=== PATIENT | female | born 1980 ===

== ENCOUNTER → 2022-12-08 13:44 | Outpatient (BNVA) | payer OTHER, SELFPAY | PROVIDERS: PCP Internal Medicine; Visit Provider Nurse Practitioner Family | DX: R39.14 Feeling of incomplete bladder emptying (principal); R39.16 Straining to void | CPT/HCPCS: 51798; 99202 ==

== ENCOUNTER 2023-03-03 10:18 | Outpatient (REF) | payer OTHER, SELFPAY ==
--- NOTE | ~2023-03-03 | US_ITS ---
EXAMINATION: US RETROPERITONEAL COMPLETE (RENAL) CLINICAL INFORMATION: Feeling of incomplete bladder emptying. COMPARISON: None available. TECHNIQUE: Real-time imaging of the kidneys and bladder. FINDINGS: RIGHT KIDNEY: 9.3 x 4.9 x 4.1 cm (SAG x AP x TRV). The kidney is normal in size, contour, and echogenicity. Renal cortical thickness is normal. No calculi or focal parenchymal lesions. No hydronephrosis. LEFT KIDNEY: 9.3 x 5.0 x 5.5 cm (SAG x AP x TRV). The kidney is normal in size, contour, and echogenicity. Renal cortical thickness is normal. No calculi or focal parenchymal lesions. No hydronephrosis. BLADDER: Well distended and normal. Bilateral ureteral jets are not demonstrated. Prevoid bladder volume is 181 mL. Postvoid bladder volume is 2 mL. INCIDENTAL FINDING: Uterine device is noted, properly situated within the endometrial canal. US/US retroperitoneal comp IMPRESSION: Unremarkable examination.
== END 2023-03-03 10:19 | disposition home or self-care (01) ==
LOC: HO.US 10:18
PROVIDERS: PCP Internal Medicine; Visit Provider Nurse Practitioner Family
DX: R39.14 Feeling of incomplete bladder emptying (principal)
CPT/HCPCS: 76770

== ENCOUNTER 2023-03-24 11:40 | Outpatient (AMB) | payer OTHER, SELFPAY ==
--- NOTE | 2023-03-24 11:44 | MHC.OFFVIS ---
Intake Intake Visit Reasons: follow up/US Intake Note: Patient is present for follow up visit difficulty urinating/ultrasound (imaging 03/03/23) Urology Medications: none Blood Thinner: none PVR:252ml's Invasive Cardiovascular Technologist Required: Yes Invasive Cardiovascular Technologist Language: Drink Box Mechanic Name: Radha Information Interpreted: clinical only Accompanied by: Self / Same As Patient Allergies No Known Allergies Allergy (Verified 03/24/23 12:21) Medication List - Last Reconciled 03/24/23 by FRANKY Ambrosio terazosin 1 mg PO BEDTIME 30 days HPI HPI Comments History of Present Illness Details Sidra knapp 42-year-old [place] Citizen-speaking patient of Dr. Bruce Velasquez. She presents to the office today for follow-up. Of note, patient was seen approximately 3 months ago as a new patient for issues with her urination at which time a retroperitoneal ultrasound was ordered for further assessment evaluation. These results were reviewed with the patient today. Bilateral kidneys with no calculi, lesions, and or hydronephrosis noted. The bladder is well distended and normal. Bilateral ureteral jets are not demonstrated. Prevoid bladder volume is approximately 180 mL. Postvoid bladder volume is approximately 0 mL. Unremarkable examination. In discussion with the patient today she continues to feel the need to strain when urinating. She discusses feeling the need to strain to be able to empty her bladder. She otherwise denies urinary urgency, urinary frequency, incontinence, nocturia, hematuria, dysuria, foul smelling urine, changes to urinary stream, flank pain, fever, and or chills. In office urinalysis results reviewed with the patient today. PVR 252mL. Discussed at length potential causes for incomplete bladder emptying as well as affects of straining on the bladder. She otherwise denies any issues or concerns. She also reports to be drinking plenty of water daily. [facility] Surgical History H/O umbilical hernia repair Previous section Family History Father Hypertension CAD (coronary artery disease) Mother Diabetes mellitus Liver cirrhosis Social History Housing: House Alcohol intake: current Alcohol intake frequency: holidays/special occasions only Alcohol type: wine Patient Tobacco Use Status: Never used Tobacco Tobacco use type: Cigarette e-Cigarette/Vaping Use: Never Used service: No Current occupational status: employed Review of Systems Const All systems reviewed & are unremarkable except as noted in HPI and below Reports no additional complaints Eyes Reports no additional complaints ENT Reports no additional complaints Card Reports no additional complaints Resp Reports no additional complaints GI Reports no additional complaints Reports as per HPI Musc Reports no additional complaints Neuro Reports no additional complaints Psych Reports no additional complaints Endo Reports no additional complaints Physical Exam Const General: cooperative, healthy appearing, comfortable, no acute distress, well developed, alert and awake Orientation/consciousness: patient oriented x3 Limitations: no limitations HEENT Head: Yes normal to inspection, Yes normocephalic and Yes atraumatic Ears: hearing grossly normal bilaterally Eyes General: appearance normal, both eyes and all related structures Neck Neck: Yes normal visual inspection and Yes trachea midline Chest Chest palpation & inspection: normal inspection of the chest Resp Effort & Inspection: normal respiratory effort and able to speak in complete sentences Cardio Rate: regular rate GI Inspection: Yes normal to inspection General: Yes no CVA tenderness Back/Spine/Pelvis Back: no CVA tenderness Skin General skin exam: no rashes or lesions noted Neuro General: patient oriented x3 Extrem General: Yes normal to inspection Psych Appearance: grossly normal and well kempt Mental Status: mental status grossly normal Speech and movement: Normal speech and movement present and Clear speech present Affect: normal affect Attitude: cooperative Thought process: Normal thought process present Thought content: Normal thought content present Insight: Good insight present (Psych) Judgement: Good judgement present (Psych) Office Procedures Post Void Residual Post Residual Void Post Void Residual (PVR): 252 [id number]-[id number] Void Residual by ultrasound Results AMB Urinalysis, Automated UA Leukoctes 0 Siva/uL Last Edit by NATY Aguirre on 03/24/23 11:55 UA Nitrite Negative Last Edit by NATY Aguirre on 03/24/23 11:55 UA Urobilinogen 0.2 mg/dL Last Edit by NATY Aguirre on 03/24/23 11:55 UA Protein 0 mg/dL Last Edit by NATY Aguirre on 03/24/23 11:55 UA pH 6.5 Last Edit by Kathryn Sinha, NATY on 03/24/23 11:55 UA Blood 0 Александр/uL Last Edit by NATY Aguirre on 03/24/23 11:55 UA Specific [place] 1.005 Last Edit by Kathryn Sinha, A on 03/24/23 11:55 UA Ketone Negative Last Edit by Kathryn Sinha, A on 03/24/23 11:55 UA Bilirubin 0 mg/dL Last Edit by Kathryn Sinha, A on 03/24/23 11:55 UA Glucose 0 mg/dL Last Edit by Kathryn Sinha, A on 03/24/23 11:55 Results Reviewed Results Reviewed: Laboratory Last Values Urine pH (Auto) 6.5 03/24/23 11:49 Specific [place] (Auto) 1.005 03/24/23 11:49 Urine Protein (Auto) 0 mg/dL 03/24/23 11:49 Glucose (UA)(Auto) 0 mg/dL 03/24/23 11:49 Urine Ketones (Auto) Negative 03/24/23 11:49 Urine Blood (Auto) 0 Александр/uL 03/24/23 11:49 Urine Nitrite (Auto) Negative 03/24/23 11:49 Urine Bilirubin (Auto) 0 mg/dL 03/24/23 11:49 Urine Urobilinogen (Auto) 0.2 mg/dL 03/24/23 11:49 Leukocyte Esterase (Auto) 0 Siva/uL 03/24/23 11:49 Date of Service: 03/03/23 EXAMINATION: US RETROPERITONEAL COMPLETE (RENAL) FINDINGS: RIGHT KIDNEY: 9.3 x 4.9 x 4.1 cm (SAG x AP x TRV). The kidney is normal in size, contour, and echogenicity. Renal cortical thickness is normal. No calculi or focal parenchymal lesions. No hydronephrosis. LEFT KIDNEY: 9.3 x 5.0 x 5.5 cm (SAG x AP x TRV). The kidney is normal in size, contour, and echogenicity. Renal cortical thickness is normal. No calculi or focal parenchymal lesions. No hydronephrosis. BLADDER: Well distended and normal. Bilateral ureteral jets are not demonstrated. Prevoid bladder volume is 181 mL. Postvoid bladder volume is 2 mL. INCIDENTAL FINDING: Uterine device is noted, properly situated within the endometrial canal. IMPRESSION: Unremarkable examination. Assessment & Plan Assessment & Plan (1) Straining to void: Code(s): R39.16 - Straining to void (2) Feeling of incomplete bladder emptying: Code(s): R39.14 - Feeling of incomplete bladder emptying (3) Incomplete bladder emptying: Code(s): R33.9 - Retention of urine, unspecified Plan In office urinalysis results reviewed with the patient today. PVR 252 mL. Recent retroperitoneal ultrasound results reviewed with the patient today; as noted above. Discussed at length attempting to double void to assist with incomplete bladder emptying. Discussed affects of incomplete bladder emptying as well as straining on the bladder. Information provided on vaginal weights and pelvic floor therapy as well as outpatient pelvic floor therapy information. Start 1 mg of terazosin at bedtime as discussed and prescribed. Discussed, educated, and instructed on the importance of continuing to drink plenty of water daily. Discussed possible near future in office cystoscopy verses urodynamics if symptoms persist and/or worsen Follow-up in 6-8 weeks with PVR; or sooner with any issues, concerns, and or questions Orders: Orders AMB Post Void Residual by ultrasound 03/24/23 N39.3 - Stress incontinence (female) (male) AMB Urinalysis Automated 03/24/23 N39.0 - Urinary tract infection, site not specified Medications: New terazosin 1 mg PO BEDTIME 30 days 30 caps 1RF R39.12 - Poor urinary stream Patient Instructions: The patient had an opportunity to ask questions regarding the treatment plan. All questions were answered. Physical exam, labs, and imaging were discussed and reviewed in detail. As well as risks, benefits, and discussion of treatment choices. No major barriers to understanding were identified. The patient expressed understanding and agreement with the above treatment plan. The patient was made aware they should contact our office by phone for worsening of their current condition, the appearance of new symptoms, or with any questions or concerns. Compliance is encouraged with any medications and follow up testing that is ordered. It is a privilege to be allowed the opportunity to participate in? your urological care.? Again, if you have any questions or concerns If you have any questions or concerns please do not hesitate to contact me. The office is [phone]. This note is constructed using voice recognition software. While every effort has been made to ensure accuracy door cutter errors may have been included. Yours sincerely, PILI Ambrosio-AAKASH Coding Level of Care Code Est Pt Level 4 (03629) Diagnoses Straining to void R39.16 Feeling of incomplete bladder emptying R39.14 Incomplete bladder emptying R33.9 CPT Codes Post Residual Void - PVR CPT Code: 04454-Hkpa Void Residual by ultrasound ([id number])
== END 2023-03-24 12:24 | disposition home or self-care (01) ==
PROVIDERS: PCP Internal Medicine; Visit Provider Nurse Practitioner Family
DX: R39.16 Straining to void (principal); R39.14 Feeling of incomplete bladder emptying; R33.9 Retention of urine, unspecified
CPT/HCPCS: 99214

== ENCOUNTER → 2023-03-24 11:40 | Outpatient (BNVA) | payer OTHER, SELFPAY | PROVIDERS: PCP Internal Medicine; Visit Provider Nurse Practitioner Family | DX: R39.16 Straining to void (principal); R39.14 Feeling of incomplete bladder emptying; R33.9 Retention of urine, unspecified | CPT/HCPCS: 51798; 81003; 99212 ==

== ENCOUNTER 2023-05-31 12:59 | Outpatient (AMB) | payer OTHER, SELFPAY ==
--- NOTE | 2023-05-31 13:00 | A.OFFVIS_ITS ---
Intake Intake Visit Reasons: f/u Intake Note: Patient is present for follow up visit difficulty urinating Urology Medications: terazosin Blood Thinner: none PVR: 0ml's Global Transportation Manager Required: Yes Global Transportation Manager Language: News Operations Manager Name: Rae Information Interpreted: clinical only Accompanied by: Self / Same As Patient Allergies No Known Allergies Allergy (Verified 05/31/23 21:32) Medication List - Last Reconciled 05/31/23 by PILI Ambrosio-AAKASH terazosin 1 mg PO DAILY 90 days HPI HPI Comments History of Present Illness Details Sidra knapp 42-year-old Romansh-speaking patient of Dr. Bruce Velasquez. She presents to the office today for follow-up. Of note, patient was seen approximately 6 weeks ago at which time she was started on low-dose terazosin 1 mg at bedtime for incomplete bladder emptying. In discussion with the patient today she reports noting significant improvement in urinary stream and has been urinating without the need to strain. She reports having brought vaginal weights and has been performing pelvic floor exercises with and without vaginal weights at home. She reports finding this helpful however at times feels discomfort and pressure in her vagina. Discussed attempting pelvic floor therapy with and without weights. Previous workup has included a retroperitoneal ultrasound noting bilateral kidneys with no calculi, lesions, and or hydronephrosis noted. The bladder is well distended and normal. Bilateral ureteral jets are not demonstrated. Prevoid bladder volume is approximately 180 mL. Postvoid bladder volume is approximately 0 mL. Unremarkable examination. She otherwise denies urinary urgency, urinary frequency, incontinence, nocturia, hematuria, dysuria, foul smelling urine, c hanges to urinary stream, flank pain, fever, and or chills. In office urinalysis results reviewed with the patient today. PVR 0mls. Discussed at length potential causes for incomplete bladder emptying as well as affects of straining on the bladder. She otherwise denies any issues or concerns. She also reports to be drinking plenty of water daily. [facility] Surgical History Previous section H/O umbilical hernia repair Family History Father Hypertension CAD (coronary artery disease) Mother Diabetes mellitus Liver cirrhosis Social History Housing: House Alcohol intake: current Alcohol intake frequency: holidays/special occasions only Alcohol type: wine Patient Tobacco Use Status: Never used Tobacco Tobacco use type: Cigarette e-Cigarette/Vaping Use: Never Used service: No Current occupational status: employed Review of Systems Const All systems reviewed & are unremarkable except as noted in HPI and below Reports no additional complaints Eyes Reports no additional complaints ENT Reports no additional complaints Card Reports no additional complaints Resp Reports no additional complaints GI Reports no additional complaints Reports as per HPI Musc Reports no additional complaints Neuro Reports no additional complaints Psych Reports no additional complaints Endo Reports no additional complaints Physical Exam Const General: cooperative, healthy appearing, comfortable, no acute distress, well developed, alert and awake Orientation/consciousness: patient oriented x3 Limitations: no limitations HEENT Head: Yes normal to inspection, Yes normocephalic and Yes atraumatic Ears: hearing grossly normal bilaterally Eyes General: appearance normal, both eyes and all related structures Neck Neck: Yes normal visual inspection and Yes trachea midline Chest Chest palpation & inspection: normal inspection of the chest Resp Effort & Inspection: normal respiratory effort and able to speak in complete sentences Cardio Rate: regular rate GI Inspection: Yes normal to inspection General: Yes no CVA tenderness Back/Spine/Pelvis Back: no CVA tenderness Skin General skin exam: no rashes or lesions noted Neuro General: patient oriented x3 Extrem General: Yes normal to inspection Psych Appearance: grossly normal and well kempt Mental Status: mental status grossly normal Speech and movement: Normal speech and movement present and Clear speech present Affect: normal affect Attitude: cooperative Thought process: Normal thought process present Thought content: Normal thought content present Insight: Good insight present (Psych) Judgement: Good judgement present (Psych) Office Procedures Post Void Residual Post Residual Void Post Void Residual (PVR): 0 [id number] Void Residual by ultrasound Results AMB Urinalysis, Automated UA Leukoctes 0 Siva/uL Last Edit by Cassy Marquez on 05/31/23 13:20 UA Nitrite Negative Last Edit by Cassy Marquez on 05/31/23 13:20 UA Urobilinogen 0.2 mg/dL Last Edit by Cassy Marquez on 05/31/23 13:20 UA Protein 0 mg/dL Last Edit by Cassy Marquez on 05/31/23 13:20 UA pH 7.0 Last Edit by Sergeyheather Hazellogan on 05/31/23 13:20 UA Blood 0 Александр/uL Last Edit by Cassy Marquez on 05/31/23 13:20 UA Specific [place] 1.015 Last Edit by Cassy Marquez on 05/31/23 13:20 UA Ketone Negative Last Edit by Cassy Yaseminlogan on 05/31/23 13:20 UA Bilirubin 0 mg/dL Last Edit by Cassy Marquez on 05/31/23 13:20 UA Glucose 0 mg/dL Last Edit by Cassy Marquez on 05/31/23 13:20 Results Reviewed Results Reviewed: Laboratory Last Values Urine pH (Auto) 7.0 05/31/23 13:01 Specific [place] (Auto) 1.015 05/31/23 13:01 Urine Protein (Auto) 0 mg/dL 05/31/23 13:01 Glucose (UA)(Auto) 0 mg/dL 05/31/23 13:01 Urine Ketones (Auto) Negative 05/31/23 13:01 Urine Blood (Auto) 0 Александр/uL 05/31/23 13:01 Urine Nitrite (Auto) Negative 05/31/23 13:01 Urine Bilirubin (Auto) 0 mg/dL 05/31/23 13:01 Urine Urobilinogen (Auto) 0.2 mg/dL 05/31/23 13:01 Leukocyte Esterase (Auto) 0 Siva/uL 05/31/23 13:01 Assessment & Plan Assessment & Plan (1) Incomplete bladder emptying: Code(s): R33.9 - Retention of urine, unspecified (2) Straining to void: Code(s): R39.16 - Straining to void (3) Feeling of incomplete bladder emptying: Code(s): R39.14 - Feeling of incomplete bladder emptying Plan In office urinalysis results reviewed with the patient today. PVR 0mls Discussed affects of incomplete bladder emptying as well as straining on the bladder. Information provided on vaginal weights and pelvic floor therapy as well as outpatient pelvic floor therapy information. Continue terazosin at bedtime as discussed and prescribed. Discussed, educated, and instructed on the importance of continuing to drink plenty of water daily. Discussed possible near future in office cystoscopy verses urodynamics if symptoms persist and/or worsen Follow-up in 3 months with PVR; or sooner with any issues, concerns, and or questions Orders: Orders AMB Urinalysis Automated Today Z13.9 - Encounter for screening, unspecified AMB Post Void Residual by ultrasound Today R33.9 - Retention of urine, unspecified Medications: Changed From terazosin 1 mg PO BEDTIME 30 caps 1RF 30 days R39.12 - Poor urinary stream To terazosin 1 mg PO DAILY 90 caps 1RF 90 days R39.12 - Poor urinary stream Patient Instructions: The patient had an opportunity to ask questions regarding the treatment plan. All questions were answered. Physical exam, labs, and imaging were discussed and reviewed in detail. As well as risks, benefits, and discussion of treatment choices. No major barriers to understanding were identified. The patient expressed understanding and agreement with the above treatment plan. The patient was made aware they should contact our office by phone for worsening of their current condition, the appearance of new symptoms, or with any questions or concerns. Compliance is encouraged with any medications and follow up testing that is ordered. It is a privilege to be allowed the opportunity to participate in? your urological care.? Again, if you have any questions or concerns If you have any questions or concerns please do not hesitate to contact me. The office is [phone]. This note is constructed using voice recognition software. While every effort has been made to ensure accuracy accounts receivable processor errors may have been included. Yours sincerely, FRANKY Ambrosio Coding Level of Care Code Est Pt Level 3 (50364) Diagnoses Incomplete bladder emptying R33.9 Straining to void R39.16 Feeling of incomplete bladder emptying R39.14 CPT Codes Post Residual Void - PVR CPT Code: 89035-Rdzq Void Residual by ultrasound ([id number])
== END 2023-05-31 13:44 | disposition home or self-care (01) ==
PROVIDERS: PCP Internal Medicine; Visit Provider Nurse Practitioner Family
DX: R33.9 Retention of urine, unspecified (principal); R39.16 Straining to void; R39.14 Feeling of incomplete bladder emptying
CPT/HCPCS: 99213

== ENCOUNTER → 2023-05-31 12:59 | Outpatient (BNVA) | payer OTHER, SELFPAY | PROVIDERS: PCP Internal Medicine; Visit Provider Nurse Practitioner Family | DX: R33.9 Retention of urine, unspecified (principal); R39.16 Straining to void; R39.14 Feeling of incomplete bladder emptying | CPT/HCPCS: 51798; 81003; 99212 ==

== ENCOUNTER 2023-10-17 10:56 | Outpatient (AMB) | payer OTHER, SELFPAY ==
--- NOTE | 2023-10-17 11:16 | A.OFFVIS_ITS ---
Intake Intake Visit Reasons: 3 month/ PVR Intake Note: Patient presents today for established treatment of : Incomplete Bladder Emptying Urology Medications: Terazosin (patient needs refills) Allergies to Antibiotic: None Blood Thinner: None PVR: 117ml's Performance Instructor Required: Yes Performance Instructor Name: AFUA CHÁVEZAnahyANTONINO Accompanied by: Self / Same As Patient Allergies No Known Allergies Allergy (Verified 10/17/23 11:47) Medication List - Last Reconciled 10/17/23 by PILI Ambrosio- cholecalciferol (vitamin D3) 50 mcg PO DAILY vit no.[id number] 27 mg iron- 800 mcg ( One Daily) 1 tab PO DAILY terazosin 1 mg PO DAILY 90 days HPI HPI Comments History of Present Illness Details Sidra stephens pleasant 42-year-old Chinese-speaking patient of Dr. Bruce Velasquez. She presents to the office today for follow-up of her lower urinary tract symptoms and incomplete bladder emptying. In discussion with the patient today she reports to be doing and feeling well. She reports continuing with pelvic floor therapy and has found this extremely helpful. She discusses having ran out of her prescription of terazosin and has not been taking this medication for approximately 3 weeks. She notes increase in lower urinary tract symptoms without terazosin 1 mg at bedtime. She continues to work on pelvic floor therapy at home with exercises provided by pelvic floor therapist. She discusses at her pelvic floor therapy appointment last week she had been experiencing increased amounts of lower urinary tract symptoms such as urinary frequency, urinary urgency, and dysuria. She reports the symptoms have subsided. In office urinalysis results reviewed with the patient today. PVR 117 mL. Previous workup has included a retroperitoneal ultrasound noting bilateral kidneys with no calculi, lesions, and or hydronephrosis noted. The bladder is well distended and normal. Bilateral ureteral jets are not demonstrated. Prevoid bladder volume is approximately 180 mL. Postvoid bladder volume is approximately 0 mL. Unremarkable examination. She otherwise denies urinary urgency, urinary frequency, incontinence, nocturia, hematuria, dysuria, foul smelling urine, changes to urinary stream, flank pain, fever, and or chills. Discussed at length potential causes for incomplete bladder emptying as well as affects of straining on the bladder. She otherwise denies any issues or concerns. She also reports to be drinking plenty of water daily. She discusses at length her miscarriages of twin girls at 6 months in the [place] were she is from. She otherwise offers no other issues or concerns at this time. [facility] Surgical History Previous section H/O umbilical hernia repair Family History Father Hypertension CAD (coronary artery disease) Mother Diabetes mellitus Liver cirrhosis Social History Housing: House Alcohol intake: current Alcohol intake frequency: holidays/special occasions only Alcohol type: wine Patient Tobacco Use Status: Never used Tobacco Tobacco use type: Cigarette e-Cigarette/Vaping Use: Never Used service: No Current occupational status: employed Review of Systems Const All systems reviewed & are unremarkable except as noted in HPI and below Reports no additional complaints Eyes Reports no additional complaints ENT Reports no additional complaints Card Reports no additional complaints Resp Reports no additional complaints GI Reports no additional complaints Reports as per HPI Musc Reports no additional complaints Neuro Reports no additional complaints Psych Reports no additional complaints Endo Reports no additional complaints Physical Exam Const General: cooperative, healthy appearing, comfortable, no acute distress, well developed, alert and awake Orientation/consciousness: patient oriented x3 Limitations: no limitations HEENT Head: Yes normal to inspection, Yes normocephalic and Yes atraumatic Ears: hearing grossly normal bilaterally Eyes General: appearance normal, both eyes and all related structures Neck Neck: Yes normal visual inspection and Yes trachea midline Chest Chest palpation & inspection: normal inspection of the chest Resp Effort & Inspection: normal respiratory effort and able to speak in complete sen tences Cardio Rate: regular rate GI Inspection: Yes normal to inspection General: Yes no CVA tenderness Back/Spine/Pelvis Back: no CVA tenderness Skin General skin exam: no rashes or lesions noted Neuro General: patient oriented x3 Extrem General: Yes normal to inspection Psych Appearance: grossly normal and well kempt Mental Status: mental status grossly normal Speech and movement: Normal speech and movement present and Clear speech present Affect: normal affect Attitude: cooperative Thought process: Normal thought process present Thought content: Normal thought content present Insight: Good insight present (Psych) Judgement: Good judgement present (Psych) Office Procedures Post Void Residual Post Residual Void Post Void Residual (PVR): 117 [id number] Void Residual by ultrasound Results AMB Urinalysis, Automated UA Leukoctes 0 Siva/uL Last Edit by Cassy Marquez on 10/17/23 11:31 UA Nitrite Negative Last Edit by Cassy Marquez on 10/17/23 11:31 UA Urobilinogen 0.2 mg/dL Last Edit by Cassy Marquez on 10/17/23 11:31 UA Protein 0 mg/dL Last Edit by Cassy Marquez on 10/17/23 11:31 UA pH 7.0 Last Edit by Fanchimpneeta Marquez on 10/17/23 11:31 UA Blood 0 Александр/uL Last Edit by Quosislogan on 10/17/23 11:31 UA Specific Dwight 1.000 Last Edit by Oberon Spaceheather Marquez on 10/17/23 11:31 UA Ketone Negative Last Edit by Cassy Marquez on 10/17/23 11:31 UA Bilirubin 0 mg/dL Last Edit by Fanchimpneeta Marquez on 10/17/23 11:31 UA Glucose 0 mg/dL Last Edit by Fanchimpneeta Marquez on 10/17/23 11:31 Results Reviewed Results Reviewed: Laboratory Last Values Urine pH (Auto) 7.0 10/17/23 11:28 Specific Dwight (Auto) 1.000 10/17/23 11:28 Urine Protein (Auto) 0 mg/dL 10/17/23 11:28 Glucose (UA)(Auto) 0 mg/dL 10/17/23 11:28 Urine Ketones (Auto) Negative 10/17/23 11:28 Urine Blood (Auto) 0 Александр/uL 10/17/23 11:28 Urine Nitrite (Auto) Negative 10/17/23 11:28 Urine Bilirubin (Auto) 0 mg/dL 10/17/23 11:28 Urine Urobilinogen (Auto) 0.2 mg/dL 10/17/23 11:28 Leukocyte Esterase (Auto) 0 Siva/uL 10/17/23 11:28 Assessment & Plan Assessment & Plan (1) Incomplete bladder emptying: Code(s): R33.9 - Retention of urine, unspecified (2) Straining to void: Code(s): R39.16 - Straining to void (3) Feeling of incomplete bladder emptying: Code(s): R39.14 - Feeling of incomplete bladder emptying Plan In office urinalysis results reviewed with the patient today; as noted above. PVR 117ml's Discussed affects of incomplete bladder emptying as well as straining on the bladder. Continue with pelvic floor therapy Continue terazosin at bedtime as discussed and prescribed; refill provided Discussed, educated, and instructed on the importance of continuing to drink plenty of water daily. Discussed possible near future in office cystoscopy verses urodynamics if symptoms persist and/or worsen Follow-up in 3 months with PVR; or sooner with any issues, concerns, and or questions. Orders: Orders AMB Urinalysis Automated Today Z13.9 - Encounter for screening, unspecified AMB Post Void Residual by ultrasound Today R33.9 - Retention of urine, unspecified Medications: Refilled terazosin 1 mg PO DAILY 90 caps 3RF 90 days R39.12 - Poor urinary stream Patient Instructions: The patient had an opportunity to ask questions regarding the treatment plan. All questions were answered. Physical exam, labs, and imaging were discussed and reviewed in detail. As well as risks, benefits, and discussion of treatment choices. No major barriers to understanding were identified. The patient expressed understanding and agreement with the above treatment plan. The patient was made aware they should contact our office by phone for worsening of their current condition, the appearance of new symptoms, or with any questions or concerns. Compliance is encouraged with any medications and follow up testing that is ordered. It is a privilege to be allowed the opportunity to participate in? your urological care.? Again, if you have any questions or concerns If you have any questions or concerns please do not hesitate to contact me. The office is [phone]. This note is constructed using voice recognition software. While every effort has been made to ensure accuracy pickle cutter errors may have been included. Yours sincerely, FRANKY Ambrosio Coding Level of Care Code Est Pt Level 3 (19196) Diagnoses Incomplete bladder emptying R33.9 Straining to void R39.16 Feeling of incomplete bladder emptying R39.14 CPT Codes Post Residual Void - PVR CPT Code: 03836-Ipci Void Residual by ultrasound ([id number])
== END 2023-10-17 11:48 | disposition home or self-care (01) ==
PROVIDERS: PCP Nurse Practitioner Family; Visit Provider Nurse Practitioner Family
DX: R33.9 Retention of urine, unspecified (principal); R39.16 Straining to void; R39.14 Feeling of incomplete bladder emptying; Z13.9 Encounter for screening, unspecified
CPT/HCPCS: 99213

== ENCOUNTER → 2023-10-17 10:56 | Outpatient (BNVA) | payer OTHER, SELFPAY | PROVIDERS: PCP Nurse Practitioner Family; Visit Provider Nurse Practitioner Family | DX: R33.9 Retention of urine, unspecified (principal); R39.16 Straining to void; R39.14 Feeling of incomplete bladder emptying | CPT/HCPCS: 51798; 81003; 99212 ==

== ENCOUNTER 2023-10-27 10:00 | Outpatient (RCR) | payer OTHER, SELFPAY | END 2023-11-29 16:13 | disposition home or self-care (01) | LOC: HO.PT 10:00 | PROVIDERS: PCP Nurse Practitioner Family; Visit Provider Nurse Practitioner Family | DX: R39.14 Feeling of incomplete bladder emptying (principal); R39.16 Straining to void | CPT/HCPCS: 97110; 97112; 97140; 97162 ==

== ENCOUNTER 2023-12-11 11:01 | Outpatient (AMB) | payer OTHER, SELFPAY ==
--- NOTE | 2023-12-11 11:02 | A.OFFPC_ITS ---
Vital Signs 12/11/23 11:03 Height 4 ft 11 in Weight 157 lb BMI 31.7 BP 108/64 Blood Pressure Location Lt brachial Position Sitting Intake Visit Reasons: Annual Exam Intake Note: Patient here for a physical exam Oracle Obiee Developer Required: No Accompanied by: Self / Same As Patient Allergies No Known Allergies Allergy (Verified 12/11/23 11:13) Medication List - Last Reconciled 12/11/23 by Patricia Velasquez MD cholecalciferol (vitamin D3) 50 mcg PO DAILY terazosin 1 mg PO DAILY 90 days Tobacco use date assessed: 12/11/23 Dental Screening Dental Screen Date: 12/11/23 Did you have a dental visit in the last 12 months?: Yes Did you have a dental problem in the last 6 months where you did not have access to dental care?: No Was dental information given to patient?: Patient has dentist HPI HPI Comments History of Present Illness Details This is a 42-year-old female with mild major depression that comes for her physical exam. Her mild major depression is follow by counseling. Had a mammogram about 4 years ago. Last Pap smear as per patient was 2 months ago and was normal. Complains of occasional chest pain that happens at rest located in the middle of the chest and resolve on its own. She also has occasional epigast benjamin pain most likely due to heartburn. [facility] Surgical History Previous section H/O umbilical hernia repair Family History Father Hypertension CAD (coronary artery disease) Mother Diabetes mellitus Liver cirrhosis Social History Housing: House Alcohol intake: current Alcohol intake frequency: holidays/special occasions only Alcohol type: wine Patient Tobacco Use Status: Never used Tobacco e-Cigarette/Vaping Use: Never Used Second Hand Smoke Exposure: No service: No Current occupational status: employed Current occupational exposures/hazards: No Cognitive needs: No Hearing needs: No Vision needs: No Questionnaire PHQ-9 Over the last 2 weeks, how often have you been bothered by any of the following problems? 1. Little interest or pleasure in doing things: not at all 2. Feeling down, depressed, or hopeless: not at all 3. Trouble falling or staying asleep, or sleeping too much: more than half the days 4. Feeling tired or having little energy: several days 5. Poor appetite or overeating: several days 6. Feeling bad about yourself - or that you are a failure or have let yourself or your family down: several days 7. Trouble concentrating on things, such as reading the newspaper or watching television: several days 8. Moving or speaking so slowly that other people could have noticed. Or the opposite - being so fidgety or restless that you have been moving around a lot more than usual: nearly every day 9. Thoughts that you would be better off or of hurting yourself in some way: not at all Total score: 9 Depression Screening Interpretation: Positive Depression Screening Follow-up: Existing condition, Community Mental Health Worker F/U and Follow-up Visit Requested Depression Screening Done: Yes [id number] - PHQ-9 Billing: Yes Source: Developed by Drs. Juan Marcos, Bárbara Potter, Jose Rafael Cruz and colleagues, with an educational damien from [employer]. Thrive Questionnaire Date Thrive assessed: 12/11/23 I am a: Patient What is your living situation today?: I have a steady place to live Within the past 12 months, did the food you bought not last and you didn't have the money to get more?: Never true Within the past 12 months, did you worry whether your food would run out before you got money to buy more?: Never true Do you have trouble paying for medicines?: No Do you have trouble getting transportation to medical appointments?: No Do you have trouble paying your heating and electricity bill?: No Do you have trouble taking care of your child, family member or friend?: No Do you have trouble with day-to-day activities such as bathing, preparing meals, shopping, managing finances, etc.?: No Are you currently unemployed and looking for a job?: No Are you interested in more education?: No Please select the resources that you would like help with: None Currently or been in a relationship where the following occur: no concerns reported THRIVE Score: 0 AUDIT C Alcohol Use Questionnaire (AUDIT-C) 1. How often do you have a drink containing alcohol?: Monthly or less 2. How many drinks containing alcohol do you have on a typical day when you are drinking?: 1 or 2 3. How often do you have six or more drinks on one occasion?: Never Total Score: 1 Score Reviewed/Action Taken: No RADHA-7 AMB Questionnaire RADHA-7 Date RADHA - 7 assessed: 12/11/23 Feeling nervous, anxious, or on edge: 3 = Nearly every day Not being able to stop or control worryin = Not at all Worrying too much about different things: 2 = More than half the days Trouble relaxin = More than half the days Being so restless that it is hard to sit still: 1 = Several days Becoming easily annoyed or irritable: 2 = More than half the days Feeling afraid as if something awful might happen: 1 = Several days Total RADHA-7 score (0-4 normal; 5-9 mild; 10-14 moderate; 15-21 severe): 11 Source: Developed by Drs. Juan Marcos, Bárbara Potter, Jose Rafael Cruz and colleagues, with an educational damien from [employer]. RADHA-7 Assessment Billing RADHA-7 Assessment Tool: RADHA-7 Assessment 87368 Review of Systems Const All systems reviewed & are unremarkable except as noted in HPI and below Card Denies chest pain at rest, Denies chest pain with activity, Denies edema, Denies irregular heart rhythm, Denies claudication, Denies dyspnea, Denies dyspnea on exertion, Denies orthopnea, Denies paroxysmal nocturnal dyspnea and Denies slow heart rate Resp Denies cough, Denies dyspnea and Denies dyspnea on exertion Neuro Denies behavioral changes and Denies confusion Psych Denies behavioral changes and Denies confusion Physical exam (Primary Care) Vital Signs: Last Vital Signs BP 108/64 12/11/23 11:03 BMI result Body Mass Index 31.7 Tobacco/Smoking Status: Tobacco use Status Tobacco use date assessed 12/11/23 12/11/23 11:10 Patient Tobacco Use Status Never used Tobacco 12/11/23 11:10 Tobacco use type 12/11/23 11:10 e-Cigarette/Vaping Use Never Used 12/11/23 11:10 PHQ-9: PHQ-9 Score PHQ-9: Total score 9 12/11/23 11:10 Depression Screening Interpretation: Positive Depression Screening Follow-up: Existing condition, Community Mental Health Worker F/U and Follow-up Visit Requested Thrive Assessment: Date of Thrive Assessment Date Thrive assessed 12/11/23 12/11/23 11:10 Currently or been in a relationship where the following occur: no concerns reported Const General: No confusion Orientation/consciousness: patient oriented x3 and No confusion HENMT Head: Yes normal to inspection, Yes normocephalic and Yes atraumatic Ears: external ears normal Eyes General: appearance normal, both eyes and all related structures Eyelids: Yes eyelids normal Conjunctivae: conjunctivae normal Neck Neck: Yes normal visual inspection and Yes supple Resp Effort & Inspection: normal respiratory effort Auscultation: clear to auscultation bilaterally Cardio Jugular venous distension: no JVD Rate: regular rate Rhythm: regular rhythm Heart sounds: S1 normal heart sound present and S2 normal heart sound present GI Inspection: Yes normal to inspection Palpation (GI): Soft to palpation and nontender Auscultation: normal bowel sounds Skin General skin exam: no rashes or lesions noted Neuro General: patient oriented x3, no focal motor deficits and No confusion Extrem General: Yes full ROM Psych Appearance: grossly normal Assessment and Plan Assessment & Plan (1) Physical exam: Code(s): Z00.00 - Encounter for general adult medical examination without abnormal findings Plan: Repeat in a year. (2) Mild major depression: Code(s): F32.0 - Major depressive disorder, single episode, mild Plan: Continue counseling. Orders: Orders MM screening mammo BI Today Z12.31 - Encounter for screening mammogram for malignant neoplasm of breast ECG 12 lead EKG Today R07.9 - Chest pain, unspecified FL upper GI series Today R10.13 - Epigastric pain Medications: New olopatadine 0.2% (Pataday Once Daily Relief) 1 drp ophthalmic (eye) DAILY 30 days PRN 2.5 mL 0RF itching Coding Level of Care Code Est Pt Prev Care 40-64y(75740) Diagnoses Physical exam Z00.00 Mild major depression F32.0 Additional Codes RADHA-7 Assessment Billing - RADHA-7 Assessment Tool: RADHA-7 Assessment 64211 ([id number]) Time Spent (min) 31
[2023-12-11 11:03] VITALS: BP 108/64; BMI 31.7
== END 2023-12-11 11:26 | disposition home or self-care (01) ==
PROVIDERS: Visit Provider Internal Medicine
DX: Z00.00 Encounter for general adult medical examination without abnormal findings (principal); F32.0 Major depressive disorder, single episode, mild
CPT/HCPCS: 99396

== ENCOUNTER → 2023-12-11 11:34 | Outpatient (REF) | payer OTHER, SELFPAY ==
--- NOTE | 2023-12-11 11:40 | ECG_ITS ---
Test Reason : chest pain Blood Pressure : / mmHG Vent. Rate : 056 BPM Atrial Rate : 056 BPM P-R Int : 160 ms QRS Dur : 074 ms QT Int : 404 ms P-R-T Axes : 031 034 035 degrees QTc Int : 389 ms Sinus bradycardia Otherwise normal ECG No previous ECGs available Referred By: Patricia Velasquez Electronically Signed By:JULIAN RAMON
== END ==
LOC: HO.CARD 11:34
PROVIDERS: PCP Internal Medicine; Visit Provider Internal Medicine
DX: R07.9 Chest pain, unspecified (principal)
CPT/HCPCS: 93005

== ENCOUNTER → 2023-12-11 11:40 | Outpatient (BNV) | payer OTHER, SELFPAY | PROVIDERS: PCP Internal Medicine; Visit Provider Internal Medicine | DX: R00.1 Bradycardia, unspecified (principal) | CPT/HCPCS: 93010 ==

== ENCOUNTER 2024-02-16 08:32 | Outpatient (REF) | payer OTHER, SELFPAY ==
--- NOTE | ~2024-02-16 | FL_ITS ---
EXAMINATION: XR FLUOROSCOPY UPPER GI WITH AIR CLINICAL INFORMATION: Epigastric pain COMPARISON: None TECHNIQUE: Fluoroscopic air contrast upper GI examination was performed utilizing standard techniques with thin and thick barium and effervescent granules. Numerous spot images were obtained. FINDINGS: Dual and single contrast images of the esophagus demonstrate normal caliber, contour, and mucosal pattern. No evidence of stricture, mass, or ulcerations identified. Esophageal peristalsis was normal. A very small type I hernia is present. Mild gastroesophageal reflux is seen in the distal esophagus. Dual contrast and single contrast images of the stomach demonstrate a normal contour. There is thickening of the areae gastrica. In addition, there are multiple tiny foci of contrast pooling in the fundus of the stomach that may represent small superficial aphthous ulcers. No masses are seen. Contrast freely passed into the gastric antrum and duodenal bulb without delay. Single and air-contrast images of the duodenal bulb demonstrate no abnormality. The duodenal sweep has a normal appearance, course, and mucosal fold appearance. The imaged proximal jejunum has a normal fold pattern and caliber. FLUOROSCOPY TIME: 3 minutes 24 seconds Number of Spot Images: 6 Number of Cine: 13 DOSE AREA PRODUCT: 2113 uGy-m2 (microgray-meter squared) FL/FL upper GI series IMPRESSION: 1. Very small type I hiatal hernia with mild gastroesophageal reflux. 2. Prominent areae gastrica. In addition there are multiple tiny foci of contrast pooling in the fundus of the stomach. These findings are suggestive of erosive gastritis. Recommend correlation with EGD. This procedure was performed by Nicholas Palacio PA-C, and supervised by Dr. Whitfield
== END 2024-02-16 08:33 | disposition home or self-care (01) ==
LOC: HO.XRAY 08:32
PROVIDERS: PCP Internal Medicine; Visit Provider Internal Medicine
DX: R10.13 Epigastric pain (principal)
CPT/HCPCS: 74240

== ENCOUNTER → 2024-02-16 08:33 | Outpatient (BNV) | payer OTHER, SELFPAY | PROVIDERS: PCP Internal Medicine; Visit Provider Physician Assistant Surgical | DX: R10.13 Epigastric pain (principal) | CPT/HCPCS: 74246 ==

== ENCOUNTER 2024-06-14 12:18 | Outpatient (AMB) | payer OTHER, SELFPAY ==
[2024-06-14 12:28] VITALS: BP 110/66; PULSE 63; TEMP 36.6; O2SAT 99; BMI 31.7
--- NOTE | 2024-06-14 12:28 | AM.OFFWIN_ITS ---
Intake Vital Signs 06/14/24 12:28 Height 4 ft 11 in Weight 157 lb BMI 31.7 BP 110/66 Blood Pressure Location Rt brachial Position Sitting Pulse 63 Pulse Source Pulse Oximeter Temp 97.9 F Temp Source Oral Pulse Oximetry (%) 99 Oxygen Delivery Method Room Air Intake Visit Reasons: EP headache, ? sinus infection Patient Tobacco Use Status: Never used Tobacco Allergies No Known Allergies Allergy (Verified 06/14/24 12:29) Do you need a note to return to daycare/school/sports/work: No HPI HPI Comments History of Present Illness Details History The patient is a 43-year-old [place] speaking female presenting with sinus pain and headache. The symptoms started approximately a week ago, around June 06. Initially, she experienced a cough and congestion, which improved over time. However, the sinus pain and headache have persisted. The patient describes lingering headache and congestion primarily in the sinus region. She reports the nasal discharge to be green, suggesting a bacterial component. As noted, there have been no recent fevers associated with the current symptoms. The patient mentioned that she has not been taking any medications for her condition. No ear pain was reported. She speculated that her headaches might be related to previous episodes but has noted a difference with sinus congestion this time. It's suspected that the patient had a viral sinus infection initially, which now suggests a bacterial progression as there hasn't been significant improvement. HIREN Frey interpreted this visit. Physical Exam General: Cooperative, healthy appearing, comfortable and no acute distress Orientation/consciousness: Patient oriented x3 Limitations: serbian speaking Head: Normal to inspection Ears: Hearing grossly normal bilaterally, external ears normal and TM's normal bilaterally Nose: Normal external nose present, Normal nares present and No nasal discharge present Face and sinus: Normal facial exam and Yes sinuses tender Mouth: Normal oral and palatal mucosa present and moist mucous membranes Throat: Yes tonsils normal, Yes uvula midline. Posterior oropharynx erythema Eyes: Appearance normal, both eyes and all related structures Neck: Normal visual inspection Respiratory: Clear to auscultation bilaterally. Normal respiratory effort, able to speak in complete sentences Skin: No rashes or lesions noted Neuro: Patient oriented x3 Extremities: Normal to inspection and Yes no clubbing, cyanosis or edema PFSH Surgical History Previous section H/O umbilical hernia repair Family History Father Hypertension CAD (coronary artery disease) Mother Diabetes mellitus Liver cirrhosis Social History Housing: House Alcohol intake: current Alcohol intake frequency: holidays/special occasions only Alcohol type: wine Patient Tobacco Use Status: Never used Tobacco e-Cigarette/Vaping Use: Never Used Second Hand Smoke Exposure: No service: No Current occupational status: employed Current occupational exposures/hazards: No Cognitive needs: No Hearing needs: No Vision needs: No Review of Systems Const All systems reviewed & are unremarkable except as noted in HPI and below Physical Exam Vital Signs: Last Vital Signs Temp 97.9 F 06/14/24 12:28 Pulse 63 06/14/24 12:28 BP 110/66 06/14/24 12:28 Pulse Ox 99 06/14/24 12:28 Oxygen Delivery Method Room Air 06/14/24 12:28 BMI result Body Mass Index 31.7 Assessment & Plan Assessment & Plan (1) Sinusitis: Code(s): J32.9 - Chronic sinusitis, unspecified Qualifiers: Sinusitis location: frontal Chronicity: acute Recurrence: non- recurrent Qualified Code(s): J01.10 - Acute frontal sinusitis, unspecified Plan: Plan - Initiate treatment with Fluticasone Flonase) nasal spray to reduce nasal inflammation. The patient was advised on the correct application technique for optimal absorption. - Prescribe Amoxicillin-Clavulanic acid Augmentin) to address the suspected bacterial sinusitis. The dosage is twice daily for five days, considering the pe rsistence of symptoms. - Recommend acetaminophen for headache relief, with a maximum dosage of 3 grams per day, taking liver health into account. - Budget Report Clerk the patient on the importance of adherence to the prescribed medical regimen and instruction on monitoring symptom resolution. Patient was informed and verbally consented to the use of an ambient scribe for clinic note documentation during this visit Medications: New amoxicillin-pot clavulanate 875-125 mg 1 tab PO Q12H 10 tabs 0RF Coding Level of Care Code Est Pt Level 3 (87605) Diagnoses Acute non-recurrent frontal sinusitis J01.10 Sinusitis location: frontal Chronicity: acute Recurrence: non-recurrent
== END 2024-06-14 13:08 | disposition home or self-care (01) ==
PROVIDERS: PCP Internal Medicine; Visit Provider Physician Assistant
DX: J01.10 Acute frontal sinusitis, unspecified (principal)

== ENCOUNTER → 2024-06-14 12:18 | Outpatient (BNVA) | payer OTHER, SELFPAY | PROVIDERS: PCP Internal Medicine; Visit Provider Physician Assistant | DX: J01.10 Acute frontal sinusitis, unspecified (principal) | CPT/HCPCS: 99212 ==

== ENCOUNTER 2025-01-09 11:12 | Outpatient (AMB) | payer OTHER, SELFPAY ==
--- NOTE | 2025-01-09 11:17 | MHC.PC.OV ---
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: No Accompanied by: Self / Same As Patient Allergies No Known Allergies Allergy (Verified 01/09/25 11:41) Medication List - Last Reconciled 01/09/25 by Patricia Velasquez MD vit no.[id number] 27 mg iron- 800 mcg ( One Daily) 1 tab PO DAILY Tobacco use date assessed: 01/09/25 Dental Screening Dental Screen Date: 01/09/25 Did you have a dental visit in the last 12 months?: No Did you have a dental problem in the last 6 months where you did not have access to dental care?: No Was dental information given to patient?: Patient has dentist HPI HPI Comments History of Present Illness Details The patient is a 44-year-old female presenting for an annual physical examination and care. The patient is currently 20 weeks and has been receiving regular care, including laboratory tests. She has a history of two previous sections and an umbilical hernia repair at the age of [age]. The patient reports a family history of hypertension and heart disease in her father, who is , and diabetes in her mother, who is alive. She denies any allergies to medications and is currently taking vitamins. The patient has a history of mild depression, with a PHQ-9 score of 6, and is receiving counseling for this condition. She also experiences some anxiety. Has a therapist. The patient does not smoke and consumes alcohol very infrequently, approximately once a year. [facility] Surgical History Previous section H/O umbilical hernia repair Family History Father Hypertension CAD (coronary artery disease) Mother Diabetes mellitus Liver cirrhosis Social History Housing: House Alcohol intake: current Alcohol intake frequency: holidays/special occasions only Alcohol type: wine Patient Tobacco Use Status: Never used Tobacco e-Cigarette/Vaping Use: Never Used Second Hand Smoke Exposure: No service: No Current occupational status: employed Current occupational exposures/hazards: No Cognitive needs: No Hearing needs: No Vision needs: No Questionnaire PHQ-9 Over the last 2 weeks, how often have you been bothered by any of the following problems? 1. Little interest or pleasure in doing things: several days 2. Feeling down, depressed, or hopeless: several days 3. Trouble falling or staying asleep, or sleeping too much: several days 4. Feeling tired or having little energy: several days 5. Poor appetite or overeating: several days 6. Feeling bad about yourself - or that you are a failure or have let yourself or your family down: not at all 7. Trouble concentrating on things, such as reading the newspaper or watching television: not at all 8. Moving or speaking so slowly that other people could have noticed. Or the opposite - being so fidgety or restless that you have been moving around a lot more than usual: not at all 9. Thoughts that you would be better off or of hurting yourself in some way: not at all Total score: 5 Depression Screening Interpretation: Positive Depression Screening Follow-up: Existing condition, Community Mental Health Worker F/U and Follow-up Visit Requested Depression Screening Done: Yes 01376 - PHQ-9 Billing: Yes Source: Developed by Drs. Juan Marcos, Bárbara Potter, Jose Rafael Cruz and colleagues, with an educational damien from [employer]. Thrive Questionnaire Date Thrive assessed: 01/09/25 I am a: Patient What is your living situation today?: I have a steady place to live Within the past 12 months, did the food you bought not last and you didn't have the money to get more?: I choose not to answer this question Within the past 12 months, did you worry whether your food would run out before you got money to buy more?: I choose not to answer this question Do you have trouble paying for medicines?: No Do you have trouble getting transportation to medical appointments?: No Do you have trouble paying your heating and electricity bill?: No Do you have trouble taking care of your child, family member or friend?: No Do you have trouble with day-to-day activities such as bathing, preparing meals, shopping, managing finances, etc.?: No Are you currently unemployed and looking for a job?: No Are you interested in more education?: I choose not to answer this question Please select the resources that you would like help with: None Currently or been in a relationship where the following occur: No concerns reported THRIVE Score: 0 AUDIT C Alcohol Use Questionnaire (AUDIT-C) 1. How often do you have a drink containing alcohol?: Never Total Score: 0 Score Reviewed/Action Taken: No RADHA-7 AMB Questionnaire RADHA-7 Date RADHA - 7 assessed: 01/09/25 Feeling nervous, anxious, or on edge: 1 = Several days Not being able to stop or control worryin = Several days Worrying too much about different things: 1 = Several days Trouble relaxin = Several days Being so restless that it is hard to sit still: 1 = Several days Becoming easily annoyed or irritable: 1 = Several days Feeling afraid as if something awful might happen: 1 = Several days Total RADHA-7 score (0-4 normal; 5-9 mild; 10-14 moderate; 15-21 severe): 7 Source: Developed by Drs. Juan Marcos, Bárbara Potter, Jose Rafael Cruz and colleagues, with an educational damien from [employer]. RADHA-7 Assessment Billing RADHA-7 Assessment Tool: RADHA-7 Assessment 16053 Review of Systems Const All systems reviewed & are unremarkable except as noted in HPI and below Card Denies chest pain at rest, Denies chest pain with activity, Denies edema, Denies irregular heart rhythm, Denies claudication, Denies dyspnea, Denies dyspnea on exertion, Denies orthopnea, Denies paroxysmal nocturnal dyspnea and Denies slow heart rate Resp Denies cough, Denies dyspnea and Denies dyspnea on exertion Musc Denies abnormal gait, Denies atrophy, Denies deformity and Denies limited range of motion Skin/Breast Denies bleeding lesions, Denies changing lesions and Denies rash Neuro Denies abnormal gait and Denies lack of coordination Physical exam (Primary Care) Vital Signs: Last Vital Signs BP 110/68 01/09/25 11:18 BMI result Body Mass Index 31.7 Tobacco/Smoking Status: Tobacco use Status Tobacco use date assessed 01/09/25 01/09/25 11:25 Patient Tobacco Use Status Never used Tobacco 01/09/25 11:18 Tobacco use type 12/11/23 11:26 e-Cigarette/Vaping Use Never Used 01/09/25 11:18 PHQ-9: PHQ-9 Score PHQ-9: Total score 5 01/09/25 11:29 Depression Screening Interpretation: Positive Depression Screening Follow-up: Existing condition, Community Mental Health Worker F/U and Follow-up Visit Requested Thrive Assessment: Date of Thrive Assessment Date Thrive assessed 01/09/25 01/09/25 11:25 Currently or been in a relationship where the following occur: No concerns reported HENNE Head: Yes normal to inspection, Yes normocephalic and Yes atraumatic Ears: external ears normal Eyes General: appearance normal, both eyes and all related structures Eyelids: Yes eyelids normal Conjunctivae: conjunctivae normal Neck Neck: Yes normal visual inspection and Yes supple Resp Effort & Inspection: normal respiratory effort Auscultation: clear to auscultation bilaterally Cardio Jugular venous distension: no JVD Rate: regular rate Rhythm: regular rhythm Heart sounds: S1 normal heart sound present and S2 normal heart sound present GI Inspection: Yes normal to inspection Palpation (GI): Soft to palpation and nontender Auscultation: normal bowel sounds Skin General skin exam: no rashes or lesions noted Neuro General: no focal motor deficits Extrem General: Yes full ROM Psych Appearance: grossly normal Coding Level of Care Code Est Pt Prev Care 40-64y(78088) Diagnoses Physical exam Z00.00 Mild major depression F32.0 Additional Codes PHQ-9 - 87407 - PHQ-9 Billing: Yes ([id number]) RADHA-7 Assessment Billing - RADHA-7 Assessment Tool: RADHA-7 Assessment 70508 ([id number]) Time Spent (min) 30 Assessment & Plan Assessment & Plan (1) Physical exam: Code(s): Z00.00 - Encounter for general adult medical examination without abnormal findings Category: Medical (2) Mild major depression: Code(s): F32.0 - Major depressive disorder, single episode, mild Category: Medical Plan The patient will continue with regular care, including necessary laboratory tests and monitoring of her progress. She will receive the Tdap vaccination as part of her care plan. For her mild depression and anxiety, the patient is advised to continue with counseling sessions. No additional psychiatric medications are planned at this time. Patient was informed and verbally consented to the use of an ambient scribe for clinic note documentation during this visit.
[2025-01-09 11:18] VITALS: BP 110/68; BMI 31.7
--- OUTSIDE RECORDS SUMMARY | 2025-01-09 11:57 | XMS_ITS | Encounter Summary ---
Author Organization [facility] Address [address] [place] [address] Care Team Providers Care Senior J2Ee Developer Name Role Phone Patricia Velasquez MD Primary Care Provider Reason for Visit * Reason Onset Date Comments GDM 01/06/2025 Non-compliant wi th sending in blood sugars. Has not sent in blood sugars for past month. Encounter Details Date Type Department Care Team ([facility] Contact Info) Description 01/06/2025 Telephone Obstetrics and Gynecology - [address] [place] [phone] Aleja Evans RN GDM (Non-compliant with sending in blood sugars. Has not sent in blood sugars for past month.) Social History Tobacco Use Types Packs/Day Years Used Date Smoking Tobacco: Never Smokeless Tobacco: Never Alcohol Use Standard Drinks/Week Comments Never 0 (1 standard drink = 0.6 oz pur e alcohol) Estimated Date of Delivery Comme nts Yes 05/24/2025 Based on last me nstrual period of 08/17/2024 (Exact Date) Sex and Gender Information Value Date Recorded Sex Assigned at Female 05/29/2024 12:55 PM EST Legal Sex Female 12:14 AM EST Gender Identity Female 05/29/2024 12:55 PM EST Sexual Orientation Straight 05/29/2024 12 :55 PM EST documented as of this encounter Progress Notes * Aleja Evans RN - 01/06/2025 5:03 PM EDT Non-compliant with sending in blood sugars. Has not sent in blood sugars for past month. Need bloodsugars for 12/09-present. Email sent to patient. Left message for patient to return call to triage. documented in this encounter Plan of Treatment Upcoming Encounters Date Type Department Care Team (Late st Contact Info) Description 01/21/2025 2:45 PM EDT Routine Obstetrics & Gynecology - [address] [phone] Jodie Suazo, DO [address] [place] [address] 01/24/2025 8:00 AM EDT Ancillary Procedure Maternal Medicine - [address] [phone] documented as of this encounter Visit Diagnoses Diagnosis Diet controlled gestational diabetes mellitus (GDM) in first trimester- Primary documented in this encounter Care Teams Senior J2Ee Developer Relationship Specialty Start Date End Date Patricia Velasquez MD [address] [facility] , [address] [facility] [place], [place] PCP - General Internal Medicine 05/31/24 documented as of this encounter
--- OUTSIDE RECORDS SUMMARY | 2025-01-09 11:58 | XMS_ITS | Patient Health Record ---
Author Organization [facility] Address [address] [place] [id number] Care Team Providers Care Stripper And Taper Name Role Phone ISIDRO MARRUFO Unavailable [phone] Results Component Value Reference Range Notes Test, Urine Reviewed date:09/12/2024 11:09:31 AM Interpretation:Positive Performing Lab: Notes/Report: Positive Test, Urine POSITIVE Lot # [id number] Exp. Date [id number] Chlamydia/GC Amplification-1 [id number] Reviewed date:09/14/2024 09:35:08 AM Interpretation:Negative Performing Lab:[facility], [address], [place], Phone - [phone], Director - [facility] Notes/Report: Clinical Information:SRC:urine Chlamydia trachomatis, QUITA Negative Negative Neisseria gonorrhoeae, QUITA Negative Negative Reason For Referral No Information Social History Sex Assigned At : Social History Observation Description Sex Assigned At Female Encounters Encounter Location Date Provider Diagnosis [address] [place], [place] [phone] 09/12/2024 ISIDRO MARRUFO Encounter for test, result positive Z32.01 and Encounter for screening for infections with a predominantly sexual mode of transmission Z11.3 Assessments Encounter Date Diagnosis (ICD Code) Assessment Notes Treatment Notes Treatment Clinical Notes Section Notes 09/12/2024 Encounter for test, result positive (ICD-10 - Z32.01) Discussed options counseling, STI screening, family involvement, ectopic warnings, sexual coercion, reproductive life plan. Further counseling needed: Referrals given: 09/12/2024 Encounter for screening for infections with a predominantly sexual mode of transmission (ICD-10 - Z11.3) 09/12/2024 Other Discussed STI risks, screening, and safe sex Discussed control, STI screening, emergency contraception, sexual coercion, family involvement and reproductive life planning. Further counseling needed: Referrals given: Plan Of Treatment No Information Insurance Providers Payer Name Payer Address Payer Phone Subscriber Number Group Number Insured Name Patient Relationship to Insured Coverage Start Date Coverage End Date [facility] [address] [address] [place], [place] [id number] Sidra Arredondo Self - patient is the insured
--- OUTSIDE RECORDS SUMMARY | 2025-01-09 11:58 | XMS_ITS | Data Portability ---
Author Organization [facility], Main Office Address [address] [place] [address] Care Team Providers Care Foot Doctor Name Role Phone MARION PATRICIA Primary Care Provider Assessment No assessment recorded. Plan of Treatment Reminders Order Date Submit Date Provider Last Modified By Organization Details Last Modified Time Details Appointments HBV FOLLOW UP 2024 03:00P Rosalie Kowalski MD Not available Not available Not available Lab CMP, serum or plasma 2024 025 [facility], [address] [place] [address], [id number], 12/24/2024 16:57:25 CBC 2024 025 [facility], [address] [place] [address], 44342, 12/31/2024 04:03:51 hepatitis B virus DNA, quant, PCR, unspecifi ed specimen 2024 025 [facility], [address] [place] [address], 34834, 12/31/2024 04:03:51 unlisted lab - HCV RNA quantitat cherelle tma 2024 025 [facility], [address] [place] [address], 27845, 12/31/2024 04:03:51 HIV (1+2) Ab screen, serum 2024 025 [facility], [address] [place] [address], 38930, 12/31/2024 04:03:52 RPR (rapid plasma reagin), serum 2024 025 [facility], [address] [place] [address], 11495, 12/31/2024 04:03:52 TSH, serum or plasma 2024 025 [facility], [address] [place] [address], 67982, 12/31/2024 04:03:52 bacterial vaginosis + vaginitis panel, vaginal 2024 025 [facility], [address] [place] [address], 78250, 12/25/2024 08:59:28 hepatitis C liver status biomarker panel, serum 2024 025 [facility], [address] [place] [address], 04746, 12/31/2024 04:03:52 chlamydia + gonorrhea DNA panel, unspecifi ed specimen 2024 025 [facility], [address] [place] [address], 73306, 12/25/2024 08:58:56 hepatitis B genotype, serum 2024 025 [facility], [address] [place] [address], 64149, 12/31/2024 04:03:52 hepatitis B DNA, quantitat cherelle, serum 2023 024 [facility], [address] [place] [address], 52567, 05/14/2024 09:20:48 hepatitis C virus Ab, serum 2023 024 [facility], [address] [place] [address], 07130, 05/14/2024 09:20:48 CMP, serum or plasma 2023 024 [facility], [address] [place] [address], 19639, 05/06/2024 18:29:48 CBC 2023 024 [facility], [address] [place] [address], 43274, 05/14/2024 09:20:48 beta-HCG, qualitati ve, serum or plasma 2023 024 [facility], [address] [place] [address], 51459, 05/14/2024 09:20:48 bacterial vaginosis + vaginitis panel, vaginal 2023 024 [employer], [address] [place] [address], 28021, 05/14/2024 09:20:48 urinalysi s complete, reflex culture 2023 024 [facility], [address] [place] [address], 94656, 05/07/2024 10:45:25 hepatitis B DNA, quantitat cherelle, serum 2023 024 [facility], [address] [place] [address], 39215, 08/25/2023 16:21:58 hepatitis C virus Ab, serum 2023 024 [facility], [address] [place] [address], 97632, 08/25/2023 16:21:58 CMP, serum or plasma 2023 024 [facility], [address] [place] [address], 44291, 08/25/2023 16:21:58 culture, urine 2022 023 [facility], [address] [place] [address], 12084, 06/20/2023 13:45:10 urinalysi s, complete 2022 023 [facility], [address] [place] [address], 06893, 06/19/2023 19:19:06 CT + NG DNA, PCR, urine 2022 023 [facility], [address] [place] [address], 48726, 06/20/2023 10:23:14 bacterial vaginosis + vaginitis panel, vaginal 2022 023 [email or web address] [facility], [address] [place] [address], 57147, 06/20/2023 10:19:34 hepatic function panel, serum 2022 023 [email or web address] [facility], [address] [place] [address], 81543, 06/27/2023 16:49:38 renal function panel, serum 2022 023 [email or web address] [facility], [address] [place] [address], 42853, 06/27/2023 16:49:39 HIV (1+2) Ab screen, serum 2022 023 [facility], [address] [place] [address], 54294, 06/19/2023 14:48:40 RPR (rapid plasma reagin), serum 2022 023 [email or web address] [facility], [address] [place] [address], 48632, 06/27/2023 16:49:39 hepatitis B DNA, quantitat cherelle, serum 2022 023 [email or web address] [facility], [address] [place] [address], 56985, 06/27/2023 16:49:39 hepatitis B genotype, serum 2022 023 [email or web address] [facility], [address] [place] [address], 88342, 06/27/2023 16:49:39 hepatitis D Ab, serum 2022 023 [facility], [address] [place] [address], 90792, 06/27/2023 16:49:39 hepatitis C liver status biomarker panel, serum 2022 023 [email or web address] [facility], [address] [place] [address], 60902, 06/27/2023 16:49:39 culture, urine 2022 023 [facility], [address] [place] [address], 99986, 05/04/2023 14:35:05 urinalysi s, complete 2022 023 [facility], [address] [place] [address], 26330, 05/03/2023 19:39:44 CT + NG DNA, PCR, urine 2022 023 [email or web address] [facility], [address] [place] [address], 66686, 06/06/2023 16:30:28 bacterial vaginosis + vaginitis panel, vaginal 2022 023 [email or web address] [facility], [address] [place] [address], 71333, 06/06/2023 16:30:28 hepatitis B DNA, quantitat cherelle, serum 2022 023 [id number] [facility], [address] [place] [address], 52575, 06/06/2023 16:30:27 hepatic function panel, serum 2022 023 [email or web address] [facility], [address] [place], [address], 06/06/2023 16:30:28 renal function panel, serum 2022 023 [email or web address] [facility], [address] [place], [address], 06/06/2023 16:30:28 Referral None recorded. Procedures None recorded. Surgeries None recorded. Imaging US, liver - dx HBV 2024 025 [email or web address] [facility], [facility], [address], [address], 12/24/2024 14:14:00 US, liver - dx HBV 2023 024 [email or web address] [facility], [address] [place] [address], [address], [address], 05/07/2024 10:46:37 Medication Orders Pyridium 100 mg tablet 2022 023 [facility], [address] [place] [address], [id number], 06/19/2023 14:19:23 omeprazol e 20 mg capsule,d elayed release 2022 023 [facility], [address] [place] [address], [id number], 01/02/2024 13:46:41 Patient TargetsNo targets recorded. Patient InstructionsNo instructions recorded. Reason for Referral None Reported. Results Created Date Observation Date Name Description Value Unit Range Abnormal Flag Note LastModifiedBy Organization Detail LastModifiedTime 05/03/2005/03/2023 URINA LYSIS glucose, (UA) NEGATI VE mg/dL negati ve Not Available [facility] [address] [place], [address], 05/03/2023 19:39:44 05/03/20 23 05/03/2023 URINA LYSIS bilirubin, urine NEGATI VE negati ve Not Available [facility] [address] [place], [address], 05/03/2023 19:39:44 05/03/2005/03/2023 URINA LYSIS ketone, urine NEGATI VE mg/dL negati ve Not Available [facility] [address] [place], [address], 05/03/2023 19:39:44 05/03/2005/03/2023 URINA LYSIS specific gravity, urine 1.008 1.003- 1.030 Not Available [facility] [address] [place], [address], 05/03/2023 19:39:44 05/03/2005/03/2023 URINA LYSIS blood, urine NEGATI VE negati ve Not Available [facility] [address] [place], [address], 05/03/2023 19:39:44 05/03/2005/03/2023 URINA LYSIS pH, urine 6.0 5.0-8. 0 Not Available [facility] [address] [place], [address], 05/03/2023 19:39:44 05/03/2005/03/2023 URINA LYSIS protein, urine NEGATI VE mg/dL <= trace Not Available [facility] [address] [place], [address], 05/03/2023 19:39:44 05/03/2005/03/2023 URINA LYSIS urobilinogen , urine 0.2 E.U./ dL 0.2-1. 0 Not Available [facility] [address] [place], [address], 05/03/2023 19:39:44 05/03/2005/03/2023 URINA LYSIS nitrite, urine NEGATI VE negati ve Not Available [facility] [address] [place], [address], 05/03/2023 19:39:44 05/03/2025 0505/03/2023 URINA LYSIS leukocyte esterase, urine NEGATI VE negati ve Not Available [facility] [address] [place], [address], 05/03/2023 19:39:44 05/03/20 23 05/03/2023 URINA LYSIS performing lab [facility], a membe r of Dee ty [facility] [address] [place] [address] Medic al Dire severino fontenot MD Not Available [facility] [address] [place], [address], 05/03/2023 19:39:44 05/03/20 23 05/04/2023 CHLAM YDIA DNA URINE chlamydia DNA urine NEGATI VE negati ve Not Available [facility] [address] [place] [address], 61619, 05/04/2023 10:53:59 05/03/20 23 05/04/2023 GC DNA URINE GC DNA urine NEGATI VE negati ve Not Available [facility] [address] [place] [address], 04607, 05/04/2023 10:53:59 05/03/20 23 05/04/2023 GC DNA URINE performing lab [facility] ren[facility], a membe r of [facility] [address] [place] [address] Medic al Direjaycob fontenot MD Not Available [facility] [address] [place], [address], 05/04/2023 10:53:59 05/03/20 23 05/04/2023 VAGIN OSIS DNA PANEL trichomonas vaginalis NEGATI VE negati ve Not Available [facility] [address] [place] [address], 72787, 05/04/2023 11:04:01 05/03/20 23 05/04/2023 VAGIN OSIS DNA PANEL garderella vaginalis NEGATI VE negati ve Not Available [facility] [address] [place], [address], 05/04/2023 11:04:01 05/03/20 23 05/04/2023 VAGIN OSIS DNA PANEL thelma species NEGATI VE negati ve Not Available [facility] [address] [place] [address], 52300, 05/04/2023 11:04:01 05/03/20 23 05/04/2023 VAGIN OSIS DNA PANEL performing lab [facility], a membe r of [facility] [address] [place] [address] Medic al Direjaycob fontenot MD Not Available [facility] [address] [place] [address], 86553, 05/04/2023 11:04:01 05/03/20 23 05/03/2023 URINE CULTU RE performing lab [facility] atorkena dewitt, a membe r of [facility] [address] [facility] [place] [address] Medic al Direjaycob fontenot MD Not Available [facility] [address] [place] [address], 74255, 05/04/2023 14:35:05 05/03/20 23 05/04/2023 URINE CULTU RE urine culture No growth Not Available [facility] [address] [place] [address], 35415, 05/04/2023 14:35:05 06/19/20 23 06/19/2023 COMPR EHENS CHERELLE METAB OLIC PANEL glucose 162 mg/dL 70-100 high Refer ence range appli cable to fasti ng speci mens only Not Available [facility] [address] [place] [address], 53309, 06/19/2023 14:00:44 06/19/20 23 06/19/2023 COMPR EHENS CHERELLE METAB OLIC PANEL BUN 11 mg/dL 5-25 Not Available [facility] [address] [place] [address], 49801, 06/19/2023 14:00:44 06/19/20 23 06/19/2023 COMPR EHENS CHERELLE METAB OLIC PANEL creat 0.88 mg/dL 0.5-1. 1 Not Available [facility] [address] [place], [address], 06/19/2023 14:00:44 06/19/20 23 06/19/2023 COMPR EHENS CHERELLE METAB OLIC PANEL glomerular filtration rate 85 >60 This eGFR resul t was calcu lated using the CKD-E PI 2020 Creat inine Equat ion Not Available [facility] [address] [place], [address], 06/19/2023 14:00:44 06/19/20 23 06/19/2023 COMPR EHENS CHERELLE METAB OLIC PANEL sodium 136 mEq/L 135-14 5 Not Available [facility] [address] [place], [address], 06/19/2023 14:00:44 06/19/20 23 06/19/2023 COMPR EHENS CHERELLE METAB OLIC PANEL potassium 3.7 mmol/ L 3.5-5. 5 Not Available [facility] [address] [place], [address], 06/19/2023 14:00:44 06/19/20 23 06/19/2023 COMPR EHENS CHERELLE METAB OLIC PANEL chloride 106 mmol/ L 96-110 Not Available [facility] [address] [place], [address], 06/19/2023 14:00:44 06/19/20 23 06/19/2023 COMPR EHENS CHERELLE METAB OLIC PANEL CO2 23 mmol/ L 21-32 Not Available [facility] [address] [place], [address], 06/19/2023 14:00:44 06/19/20 23 06/19/2023 COMPR EHENS CHERELLE METAB OLIC PANEL anion gap 7 3-11 Not Available [facility] [address] [place], [address], 06/19/2023 14:00:44 06/19/20 23 06/19/2023 COMPR EHENS CHERELLE METAB OLIC PANEL calcium 9.0 mg/dL 8.5-10 .5 Not Available [facility] [address] [place], [address], 06/19/2023 14:00:44 06/19/20 23 06/19/2023 COMPR EHENS CHERELLE METAB OLIC PANEL total protein 7.3 g/dL 6.0-8. 0 Not Available [facility] [address] [place], [address], 06/19/2023 14:00:44 06/19/20 23 06/19/2023 COMPR EHENS CHERELLE METAB OLIC PANEL albumin 3.6 g/dL 3.2-5. 0 Not Available [facility] [address] [place], [address], 06/19/2023 14:00:44 06/19/20 23 06/19/2023 COMPR EHENS CHERELLE METAB OLIC PANEL bili,total 0.5 mg/dL 0.0-1. 4 Not Available [facility] [address] [place], [address], 06/19/2023 14:00:44 06/19/20 23 06/19/2023 COMPR EHENS CHERELLE METAB OLIC PANEL SGOT 18 U/L 10-42 Not Available [facility] [address] [place], [address], 06/19/2023 14:00:44 06/19/20 23 06/19/2023 COMPR EHENS CHERELLE METAB OLIC PANEL SGPT 31 U/L 10-60 Not Available [facility] [address] [place], [address], 06/19/2023 14:00:44 06/19/20 23 06/19/2023 COMPR EHENS CHERELLE METAB OLIC PANEL alk phos 48 U/L 42-121 Not Available [facility] [address] [place], [address], 06/19/2023 14:00:44 06/19/20 23 06/19/2023 BILI, DIREC T bili,direct 0.1 mg/dL 0.0-0. 3 Not Available [facility] [address] [place], [address], 06/19/2023 13:57:49 06/19/20 23 06/19/2023 BILI DIREC T performing lab [facility], a membe r of [facility] [address] [facility] [place] [address] Medic al Clayton fontenot MD Not Available [facility] [address] [place] [address], 43751, 06/19/2023 13:57:49 06/19/20 23 06/19/2023 PHOSP HORUS phosphorus 2.8 mg/dL 2.5-4. 5 Not Available [facility] [address] [place], [address], 06/19/2023 14:00:45 06/19/20 23 06/19/2023 BILI, DIREC T bili,direct 0.1 mg/dL 0.0-0. 3 Not Available [facility] [address] [place] [address], 56573, 06/19/2023 14:00:45 06/19/20 23 06/19/2023 BILKena DIREC T performing lab [facility] perez dewitt, a membe r of Dee ty [facility] [address] [facility] [place] [address] Medic al Clayton fontenot MD Not Available [facility] [address] [place] [address], 16745, 06/19/2023 14:00:45 06/19/20 23 06/19/2023 BILI, DIREC T bili,direct 0.1 mg/dL 0.0-0. 3 Not Available [facility] [address] [place] [address], 17582, 06/19/2023 14:17:46 06/19/20 23 06/19/2023 TREPO NEMAL AB treponemal Ab NEGATI VE negati ve Not Available [facility] [address] [place] [address], 34012, 06/19/2023 14:17:47 06/19/20 23 06/19/2023 TREPO NEMAL AB performing lab [facility], a mem[facility] r of [facility] [address] [facility] [place] [address] Medic al Direc severino fontenot MD Not Available [facility] [address] [place] [address], 89017, 06/19/2023 14:17:47 06/19/20 23 06/19/2023 BILI, DIREC T bili,direct 0.1 mg/dL 0.0-0. 3 Not Available [facility] [address] [place] [address], 70624, 06/19/2023 14:48:40 06/19/20 23 06/19/2023 HIV 1 AND 2 SCREE N HIV 1 and 2 screen NEGATI VE negati ve This assay is a 4th gener ation assay allow ing for earli er detec tion of HIV infec tion by detec ting the prese nce of the HIV-1 p24 antig en as well as the tradi andriy l antib odies to HIV type 1 (incl uding group O) and type 2. Use of a 4th gener ation assay is the curre nt CDC recom menda tion for HIV scree elder. Not Available [facility] [address] [place], [address], 06/19/2023 14:48:40 06/19/20 23 06/19/2023 URINA LYSIS glucose, (UA) 100 mg/dL negati ve abnormal Not Available [facility] [address] [place] [address], 56554, 06/19/2023 19:19:06 06/19/20 23 06/19/2023 URINA LYSIS bilirubin, urine NEGATI VE negati ve Not Available [facility] [address] [place], [address], 06/19/2023 19:19:06 06/19/20 23 06/19/2023 URINA LYSIS ketone, urine NEGATI VE mg/dL negati ve Not Available [facility] [address] [place], [address], 06/19/2023 19:19:06 06/19/2006/19/2023 URINA LYSIS specific gravity, urine 1.005 1.003- 1.030 Not Available [facility] [address] [place], [address], 06/19/2023 19:19:06 06/19/2006/19/2023 URINA LYSIS blood, urine NEGATI VE negati ve Not Available [facility] [address] [place], [address], 06/19/2023 19:19:06 06/19/20 23 06/19/2023 URINA LYSIS pH, urine 6.0 5.0-8. 0 Not Available [facility] [address] [place], [address], 06/19/2023 19:19:06 06/19/2006/19/2023 URINA LYSIS protein, urine NEGATI VE mg/dL <= trace Not Available [facility] [address] [place], [address], 06/19/2023 19:19:06 06/19/2006/19/2023 URINA LYSIS urobilinogen , urine 0.2 E.U./ dL 0.2-1. 0 Not Available [facility] [address] [place], [address], 06/19/2023 19:19:06 06/19/2006/19/2023 URINA LYSIS nitrite, urine NEGATI VE negati ve Not Available [facility] [address] [place], [address], 06/19/2023 19:19:06 06/19/20 23 06/19/2023 URINA LYSIS leukocyte esterase, urine NEGATI VE negati ve Not Available [facility] [address] [place], [address], 06/19/2023 19:19:06 06/19/20 23 06/19/2023 URINA LYSIS performing lab [facility] abnormal [facility] atorkena dewitt, a membe r of Dee ty [address] [place] [address] Medic al Direc severino fontenot MD Not Available [facility] [address] [place], [address], 06/19/2023 19:19:06 06/19/20 23 06/20/2023 CHLAM YDIA DNA URINE chlamydia DNA urine NEGATI VE negati ve Not Available [facility] [address] [place] [address], 08160, 06/20/2023 10:17:51 06/19/20 23 06/20/2023 GC DNA URINE GC DNA urine NEGATI VE negati ve Not Available [facility] [address] [place] [address], 41760, 06/20/2023 10:17:52 06/19/20 23 06/20/2023 GC DNA URINE performing lab [facility] kat hardy membe r of Dee ty [address] [place] [place] [address] Medic al Direc severino fontenot MD Not Available [facility] [address] [place], [address], 06/20/2023 10:17:52 06/19/20 23 06/20/2023 VAGIN OSIS DNA PANEL trichomonas vaginalis NEGATI VE negati ve Not Available [facility] [address] [place], [address], 06/20/2023 11:33:07 06/19/20 23 06/20/2023 VAGIN OSIS DNA PANEL garderella vaginalis NEGATI VE negati ve Not Available [facility] [address] [place], [address], 06/20/2023 11:33:07 06/19/20 23 06/20/2023 VAGIN OSIS DNA PANEL thelma species POSITI VE negati ve abnormal Not Available [facility] [address] [place], [address], 06/20/2023 11:33:07 06/19/20 23 06/20/2023 VAGIN OSIS DNA PANEL performing lab [facility], a membe r of [facility] [address] [place] [address] Medic al Direjaycob fontenot MD Not Available [facility] [address] [place] [address], 49620, 06/20/2023 11:33:07 06/19/20 23 06/19/2023 URINE CULTU RE performing lab [facility], a membe r of [facility] [address] [facility] [place] [address] Medic al Clayton fontenot MD Not Available [facility] [address] [place], [address], 06/20/2023 13:45:10 06/19/20 23 06/20/2023 URINE CULTU RE urine culture 10,00 0 - 49,00 0 CFU/m L JULIET L SKIN/ UROGE NITAL SLIM PRESE NT. Not Available [facility] [address] [place], [address], 06/20/2023 13:45:10 06/19/20 23 06/23/2023 HEPAT ITIS B VIRAL DNA QUANT HBV DNA DETECT ED not detect ed abnormal Not Available [facility] [address] [place] [address], 979[address], 06/23/2023 15:46:25 06/19/20 23 06/23/2023 HEPAT ITIS B VIRAL DNA QUANT HBV-DNA 89 IU/mL <10 abnormal Not Available [facility] [address] [place], [address], 06/23/2023 15:46:25 06/19/20 23 06/23/2023 HEPAT ITIS B VIRAL DNA QUANT HBV log IU per mL 1.95 <1.00 abnormal Resul t Units : Log (10) IU/mL This proce dure utili zes a real- time polym erase chain react ion test from [facility]. The ampli ficat ion targe t is a conse rved regio n in the termi nal third of the hepat itis B surfa ce antig en gene. The lower limit of quant itati on is 10 IU/mL (1.00 Log IU/mL ) and the upppe r limit of quant itati on is 1 jonah on IU/mL (9.00 Log IU/mL ). The quali tativ e limit of detec tion is 10 IU/mL (1.00 Log IU/mL ). A Not detec evonne resul t does not rule out infec tion. Test perfo rmed at [facility]ory , [address] , [place] [address] [phone] Mechelle ramos MD, PhD - Medic al Direc tor Not Available [facility] [address] [place], [address], 06/23/2023 15:46:25 06/19/20 23 06/23/2023 HEPAT ITIS B VIRAL DNA QUANT performing lab [facility] abnormal [facility], a membe r of Dee ty [facility] [address] [facility] [place] [address] Medic al Direc tor - Karyn fontenot MD Not Available [facility] [address] [place], [address], 06/23/2023 15:46:25 06/19/20 23 06/24/2023 HEPAT ITIS DELTA ANITI BODY hepatitis delta Ab Negati ve negati ve No antib diego to Hepat itis Delta agent was detec evonne. Order anti- HDV testi ng only when Hepat itis B virus infec tion has been confi rmed. INTER PRETI VE INFOR MATIO N: Hepat itis Delta Ab This test was devel oped and its perfo rmanc e zayra cteri stics deter mined by [facility]. It has not been clear ed or appro liset by the [place] Food and Drug Admin istra tion. This test was perfo rmed in a CLIA certi fied labor atory and is inten ded for clini kris purpo ses. Perfo rmed By: [facility] [address] [place] [address] Labor atory Direc tor: Diane hernandez MD, PhD CLIA Numbe r: [id number] Not Available [facility] [address] [place] [address], [address], 06/24/2023 17:48:41 06/19/20 23 06/24/2023 HEPAT ITIS DELTA ANITI BODY performing lab Perfor [facility], a [facility] r [facility] [address] [facility] [place] [address] Medic al Direc tor - Karyn fontenot MD Not Available [facility] [address] [place] [address], 40[address], 06/24/2023 17:48:41 06/19/20 23 06/30/2023 LIVER FIBRO SIS PANEL [id number] oglobulin 217 mg/dL 106-27 9 Not Available [facility] [address] [place], [address], 06/30/2023 04:44:41 06/19/20 23 06/30/2023 LIVER FIBRO SIS PANEL haptoglobin 129 mg/dL 43-212 Not Available [facility] [address] [place] [address], 078[address], 06/30/2023 04:44:41 06/19/20 23 06/30/2023 LIVER FIBRO SIS PANEL apolipoprote in A1 148 mg/dL 101-19 8 Not Available [facility] [address] [place] [address], 54740, 06/30/2023 04:44:41 06/19/20 23 06/30/2023 LIVER FIBRO SIS PANEL total bilirubin 0.4 mg/dL 0.2-1. 2 Not Available [facility] [address] [place] [address], 04804, 06/30/2023 04:44:41 06/19/2006/30/2023 LIVER FIBRO SIS PANEL gamma glutamyl transpeptida se 17 U/L 3-55 Not Available [facility] [address] [place] [address], 08666, 06/30/2023 04:44:41 06/19/2006/30/2023 LIVER FIBRO SIS PANEL alanine aminotransfe rase (ALT) 20 U/L 6-29 Not Available [facility] [address] [place] [address], 41258, 06/30/2023 04:44:41 06/19/2006/30/2023 LIVER FIBRO SIS PANEL liver fibrosis score 0.11 Not Available [facility] [address] [place] [address], 10962, 06/30/2023 04:44:41 06/19/2006/30/2023 LIVER FIBRO SIS PANEL liver fibrosis stage F0 Not Available [facility] [address] [place] [address], 45775, 06/30/2023 04:44:41 06/19/2006/30/2023 LIVER FIBRO SIS PANEL liver fibrosis interpretati on SEE NOTE no fibro sis Fibro Test Score (f) Metav ir Score f>=0 and f<=0. 21 : F0 (no fibro sis) f>0.2 1 and f<=0. 27 : F0-F1 (no fibro sis) f>0.2 7 and f<=0. 31 : F1 (mini mal fibro sis) f>0.3 1 and f<=0. 48 : F1-F2 (mini mal fibro sis) f>0.4 8 and f<=0. 58 : F2 (mode rate fibro sis) f>0.5 8 and f<=0. 72 : F3 (adva nced fibro sis) f>0.7 2 and f<=0. 74 : F3-F4 (adva nced fibro sis) f>0.7 4 and f<=1. 00 : F4 (david re fibro sis) Not Available [facility] [address] [place], [address], 06/30/2023 04:44:41 06/19/20 23 06/30/2023 LIVER FIBRO SIS PANEL necroinflamm atory act score 0.06 Not Available [facility] [address] [place], [address], 06/30/2023 04:44:41 06/19/2006/30/2023 LIVER FIBRO SIS PANEL necroinflamm atory act grade A0 Not Available [facility] [address] [place] [address], [address], 06/30/2023 04:44:41 06/19/2006/30/2023 LIVER FIBRO SIS PANEL necroinflamm atory interpret SEE NOTE no activ ity ActiT est Score (a) Metav ir Score a>=0 and a<=0. 17 : A0 (no activ ity) a>0.1 7 and a<=0. 29 : A0-A1 (no activ ity) a>0.2 9 and a<=0. 36 : A1 (mini mal activ ity) a>0.3 6 and a< =0.52 : A1-A2 (mini mal activ ity) a>0.5 2 and a<=0. 60 : A2 (sign ifica nt activ ity) a>0.6 0 and a<=0. 62 : A2-A3 (sign ifica nt activ ity) a>0.6 2 and a<=1. 00 : A3 (david re activ ity) Not Available [facility] [address] [place], [address], 06/30/2023 04:44:41 06/19/20 23 06/30/2023 LIVER FIBRO SIS PANEL liver fibrosis reference id [id number] 2 Not Available [facility] [address] [place] [address], [address], 06/30/2023 04:44:41 06/19/20 23 06/30/2023 LIVER FIBRO SIS PANEL liver fibrosis footnote SEE NOTE The relia bilit y of resul ts is depen dent on compl iance with the prean alyti kris and heriberto tical condi tions recom lizzie d by BioPr rebecca garcia. The tests have to be defer red for: acute hemol ysis, acute hepat itis, acute infla mmati on, extra hepat ic jannie stasi s. The advic e of a speci alist shoul d be sough t for inter preta tion in chron ic hemol ysis and Gilbe rt's syndr ome. The test inter preta tion is not valid ated in liver trans plant patie nts. [place] evonne extre me value s of one of the compo nents shoul d lead to cauti on in inter preti ng the resul ts. In case of disco rdanc e betwe en a biops y resul t and a test, it is recom lizzie d to seek the advic e of a speci alist . The cause s of these disco rdanc es could be due to a flaw of the test or to a flaw in the biops y: i.e. a liver biops y has a 33% varia bilit y rate for one fibro sis stage . Fibro Test is inter preta ble for chron ic hepat itis B and C, alcoh olic and non alcoh olic steat osis. ActiT est is inter preta ble for chron ic hepat itis B and C. The perfo rmanc e zayra cteri stics have been deter mined by [facility] Erwin Pruitt . It has not been clear ed or appro liset by the U.S. Food and Drug Admin istra tion. Perfo rmanc e zayra cteri stics refer to the heriberto tical perfo rmanc e of the test. [facility] , [facility], the assoc iated logo, Dre ambriz and all assoc iated [facility] novak are the oscar tered trade novak of [facility]. All third green party novak - (R) and (TM) - are the prope rty of their respe ctive planer tailer s. (C) 1999- 2013 [facility] Inc[employer] porat ed. All right s reser liset. Test Perfo rmed at: [facility] Inst[facility] [id number] [place] [address] I Stefano thomas MD, PhD, NERY Not Available [facility] [address] [place], [address], 06/30/2023 04:44:41 06/19/20 23 06/30/2023 LIVER FIBRO SIS PANEL performing lab Perfor [facility]icka [facility], a [facility] r of [facility] [address] [facility] [place] [address] Medic al Direc severino fontenot MD Not Available [facility] [address] [place], [address], 06/30/2023 04:44:41 06/19/20 23 07/04/2023 VIRAL CULTU RE viral culture source Urogen ital Not Available [facility] [address] [place], [address], 07/04/2023 11:26:33 06/19/2007/04/2023 VIRAL CULTU RE viral culture interpretati on No Growth no growth This cultu re proce dure will not relia joy detec t cytom egalo virus (CMV) , enter oviru ses, norov iruse s, respi rator y syncy tial virus (RSV) , and varic andreia- zoste r virus (VZV) . PCR metho ds are recom lizzie d for these viral agent s. A negat cherelle resul t does not precl ude viral infec tion. The viabi lity of viral agent s can be degra ded if speci mens are impro perly colle cted or store d. The numbe r of viabl e virus parti cles may be below the detec tion thres hold and some viral agent s canno t be detec evonne or propa gated in cultu re. A posit cherelle resul t does not precl ude infec tion with other virus es. Fast growi ng virus es can destr oy the cell sheet and preve nt the growt h of slowe r growi ng virus es. Some virus es direc tly inter fere with the repli catio n of other virus es and some virus es canno t be detec evonne or propa gated in cultu re. Not Available [facility] [address] [place], [address], 07/04/2023 11:26:33 06/19/20 23 07/04/2023 VIRAL CULTU RE viral culture billing TNP () Test perfo rmed at [facility] , [address], [place] [address] [phone] Mechelle ramos MD, PhD - Medic al Direc tor Not Available [facility] [address] [place], [address], 07/04/2023 11:26:33 06/19/20 23 07/04/2023 VIRAL CULTU RE performing lab Perfor ericka [facility], [facility] [address] [facility] [place] [address] Medic al Direc tor - Karyn fontenot MD Not Available [facility] [address] [place], [address], 07/04/2023 11:26:33 06/19/20 23 07/04/2023 HEP B GENOT YPE HBV genotype NOT DETECT ED We are unabl e to obtai n a Genot ype from this sampl e. The most commo n reaso ns for failu re to genot ype are insuf ficie nt viral load, mutat ions in the viral genom e at the assay primi ng sites , and prese nce of inhib itory subst ance in the sampl e. Pleas e corre late this resul t with any recen t viral load for this patie nt and resub jax if clini amy warra nted. A minim um viral load of 600 IU/mL is requi red for testi ng. The metho d used in this test is PCR and seque ncing of the angelo gene and BCP/p recor e regio n of HBV. A saad padilla for tenof ovir has not yet been estab ermelinda arellano. This test was devel oped and its heriberto tical perfo rmanc e zayra cteri stics have been deter mined by [facility]. It has not been clear ed or appro liset by the U.S. Food and Drug Admin istra tion. This assay has been valid ated pursu ant to the CLIA regul ation s and is used for clini kris purpo ses. Test Perfo rmed at: [facility] Dre [facility] Inst[facility] [id number] [facility] [place] [address] Kena thomas MD, PhD Not Available [facility] [address] [place] [address], [address], 07/04/2023 16:40:34 06/19/20 23 07/04/2023 HEP B GENOT YPE HBV polymerase mutation TNP () Not Available [facility] [address] [place] [address], [address], 07/04/2023 16:40:34 06/19/20 23 07/04/2023 HEP B GENOT YPE HBV precore mutation TNP () Not Available [facility] [address] [place] [address], [address], 07/04/2023 16:40:34 06/19/20 23 07/04/2023 HEP B GENOT YPE HBV bcp mutation TNP () Not Available [facility] [address] [place], [address], 07/04/2023 16:40:34 06/19/20 23 06/30/2023 LIVER FIBRO SIS PANEL [id number] oglobulin 217 mg/dL 106-27 9 Not Available [facility] [address] [place] [address], [address], 07/04/2023 16:40:35 06/19/20 23 06/30/2023 LIVER FIBRO SIS PANEL haptoglobin 129 mg/dL 43-212 Not Available [facility] [address] [place], [address], 07/04/2023 16:40:35 06/19/20 23 06/30/2023 LIVER FIBRO SIS PANEL apolipoprote in A1 148 mg/dL 101-19 8 Not Available [facility] [address] [place], [address], 07/04/2023 16:40:35 06/19/20 23 06/30/2023 LIVER FIBRO SIS PANEL total bilirubin 0.4 mg/dL 0.2-1. 2 Not Available [facility] [address] [place], [address], 07/04/2023 16:40:35 06/19/20 23 06/30/2023 LIVER FIBRO SIS PANEL gamma glutamyl transpeptida se 17 U/L 3-55 Not Available [facility] [address] [place], [address], 07/04/2023 16:40:35 06/19/20 23 06/30/2023 LIVER FIBRO SIS PANEL alanine aminotransfe rase (ALT) 20 U/L 6-29 Not Available [facility] [address] [place], [address], 07/04/2023 16:40:35 06/19/20 23 06/30/2023 LIVER FIBRO SIS PANEL liver fibrosis score 0.11 Not Available [facility] [address] [place], [address], 07/04/2023 16:40:35 06/19/20 23 06/30/2023 LIVER FIBRO SIS PANEL liver fibrosis stage F0 Not Available [facility] [address] [place], [address], 07/04/2023 16:40:35 06/19/20 23 06/30/2023 LIVER FIBRO SIS PANEL liver fibrosis interpretati on SEE NOTE no fibro sis Fibro Test Score (f) Metav ir Score f>=0 and f<=0. 21 : F0 (no fibro sis) f>0.2 1 and f<=0. 27 : F0-F1 (no fibro sis) f>0.2 7 and f<=0. 31 : F1 (mini mal fibro sis) f>0.3 1 and f<=0. 48 : F1-F2 (mini mal fibro sis) f>0.4 8 and f<=0. 58 : F2 (mode rate fibro sis) f>0.5 8 and f<=0. 72 : F3 (adva nced fibro sis) f>0.7 2 and f<=0. 74 : F3-F4 (adva nced fibro sis) f>0.7 4 and f<=1. 00 : F4 (david re fibro sis) Not Available [facility] [address] [place] [address], [address], 07/04/2023 16:40:35 06/19/20 23 06/30/2023 LIVER FIBRO SIS PANEL necroinflamm atory act score 0.06 Not Available [facility] [address] [place] [address], [address], 07/04/2023 16:40:35 06/19/20 23 06/30/2023 LIVER FIBRO SIS PANEL necroinflamm atory act grade A0 Not Available [facility] [address] [place] [address], [address], 07/04/2023 16:40:35 06/19/20 23 06/30/2023 LIVER FIBRO SIS PANEL necroinflamm atory interpret SEE NOTE no activ ity ActiT est Score (a) Metav ir Score a>=0 and a<=0. 17 : A0 (no activ ity) a>0.1 7 and a<=0. 29 : A0-A1 (no activ ity) a>0.2 9 and a<=0. 36 : A1 (mini mal activ ity) a>0.3 6 and a< =0.52 : A1-A2 (mini mal activ ity) a>0.5 2 and a<=0. 60 : A2 (sign ifica nt activ ity) a>0.6 0 and a<=0. 62 : A2-A3 (sign ifica nt activ ity) a>0.6 2 and a<=1. 00 : A3 (david re activ ity) Not Available [facility] [address] [place], [address], 07/04/2023 16:40:35 06/19/20 23 06/30/2023 LIVER FIBRO SIS PANEL liver fibrosis reference id [id number] 2 Not Available [facility] [address] [place], [address], 07/04/2023 16:40:35 06/19/20 23 06/30/2023 LIVER FIBRO SIS PANEL liver fibrosis footnote SEE NOTE The relia bilit y of resul ts is depen dent on compl iance with the prean alyti kris and heriberto tical condi tions recom lizzie d by BioPr edict cherelle. The tests have to be defer red for: acute hemol ysis, acute hepat itis, acute infla mmati on, extra hepat ic jannie stasi s. The advic e of a speci alist shoul d be sough t for inter preta tion in chron ic hemol ysis and Gilbe rt's syndr ome. The test inter preta tion is not valid ated in liver trans plant patie nts. [place] evonne extre me value s of one of the compo nents shoul d lead to cauti on in inter preti ng the resul ts. In case of disco rdanc e betwe en a biops y resul t and a test, it is recom lizzie d to seek the advic e of a speci alist . The cause s of these disco rdanc es could be due to a flaw of the test or to a flaw in the biops y: i.e. a liver biops y has a 33% varia bilit y rate for one fibro sis stage . Fibro Test is inter preta ble for chron ic hepat itis B and C, alcoh olic and non alcoh olic steat osis. ActiT est is inter preta ble for chron ic hepat itis B and C. The perfo rmanc e zayra cteri stics have been deter mined by [facility], [place] cra[place] . It has not been clear ed or appro liset by the U.S. Food and Drug Admin istra tion. Perfo rmanc e zayra cteri stics refer to the heriberto tical perfo rmanc e of the test. [facility] , [facility], the assoc iated logo, Dre ls Insti tute and all assoc iated [facility] novak are the oscar tered trade novak of [facility]. All third green party novak - (R) and (TM) - are the prope rty of their respe ctive planer tailer s. (C) 1999- 2013 [facility] Inc[employer] porat ed. All right s reser liset. Test Perfo rmed at: [facility] Dre [facility] Insti tute [id number] [address] [facility] [place] [facility] [place] [address] I Stefano thomas MD, PhD, NERY Not Available [facility] [address] [place] [address], [address], 07/04/2023 16:40:35 06/19/20 23 06/30/2023 LIVER FIBRO SIS PANEL performing lab Perfor ericka Lab [facility]rez dewitt, a membe r of [facility] [address] [facility] [place] [address] Medic al Direc severino fontenot MD Not Available [facility] [address] [place] [address], [address], 07/04/2023 16:40:35 06/19/20 23 06/24/2023 HEPAT ITIS DELTA ANITI BODY hepatitis delta Ab Negati ve negati ve No antib diego to Hepat itis Delta agent was detec evonne. Order anti- HDV testi ng only when Hepat itis B virus infec tion has been confi rmed. INTER PRETI VE INFOR MATIO N: Hepat itis Delta Ab This test was devel oped and its perfo rmanc e zayra cteri stics deter mined by [facility]. It has not been clear ed or appro liset by the US Food and Drug Admin istra tion. This test was perfo rmed in a CLIA certi fied labor ele and is inten ded for clini kris purpo ses. Perfo rmed By: [facility] [address] [place] [address] Labor atory Direc tor: Diane hernandez MD, PhD ZAY Lo r: [id number] Not Available [facility] [address] [place] [address], [address], 09/28/2023 13:13:09 06/19/20 23 06/24/2023 HEPAT ITIS DELTA ANITI BODY performing lab Perfor ericka Lab [facility], a membe r of [facility] ty [facility] [address] [facility] [place] [address] Medic al Direc tor - Karyn fontenot MD Not Available [facility] [address] [place] [address], [address], 09/28/2023 13:13:09 05/06/20 24 05/06/2024 COMPL ETE BLOOD COUNT WBC 8.5 K/mcL 4.8-10 .8 Not Available [facility] [address] [place] [address], [address], 05/06/2024 18:28:30 05/06/20 24 05/06/2024 COMPL ETE BLOOD COUNT RBC 4.20 M/mcL 3.80-4 .80 Not Available [facility] [address] [place] [address], [address], 05/06/2024 18:28:30 05/06/20 24 05/06/2024 COMPL ETE BLOOD COUNT hemoglobin 14.1 g/dL 11.5-1 6.0 Not Available [facility] [address] [place] [address], [address], 05/06/2024 18:28:30 05/06/20 24 05/06/2024 COMPL ETE BLOOD COUNT hematocrit 40.9 % 35.0-4 7.0 Not Available [facility] [address] [place] [address], [address], 05/06/2024 18:28:30 05/06/20 24 05/06/2024 COMPL ETE BLOOD COUNT MCV 96.5 fL 79.0-9 8.0 Not Available [facility] [address] [place], [address], 05/06/2024 18:28:30 05/06/20 24 05/06/2024 COMPL ETE BLOOD COUNT MCH 33.3 pcg 27.0-3 2.0 high Not Available [facility] [address] [place], [address], 05/06/2024 18:28:30 05/06/20 24 05/06/2024 COMPL ETE BLOOD COUNT MCHC 34.5 g/dL 32.0-3 7.0 Not Available [facility] [address] [place], [address], 05/06/2024 18:28:30 05/06/20 24 05/06/2024 COMPL ETE BLOOD COUNT RDW 12.2 % 11.0-1 5.0 Not Available [facility] [address] [place], [address], 05/06/2024 18:28:30 05/06/20 24 05/06/2024 COMPL ETE BLOOD COUNT platelets 227 K/mcL 130-40 0 Not Available [facility] [address] [place], [address], 05/06/2024 18:28:30 05/06/20 24 05/06/2024 COMPL ETE BLOOD COUNT MPV 9.9 fL 7.0-11 .0 Not Available [facility] [address] [place], [address], 05/06/2024 18:28:30 05/06/20 24 05/06/2024 COMPL ETE BLOOD COUNT NRBC 0.0 % <1.0 Not Available [facility] [address] [place], [address], 05/06/2024 18:28:30 05/06/20 24 05/06/2024 COMPL ETE BLOOD COUNT NRBC absolute 0.00 K/mcL <0.10 Not Available [facility] [address] [place], [address], 05/06/2024 18:28:30 05/06/20 05/06/2024 COMPL ETE BLOOD COUNT note See Report [facility], [address] [facility], [place] sorensen d, [place] [address] LL[address] LABDS ^^^LL PL Not Available [facility] [address] [place], [address], 05/06/2024 18:28:30 05/06/20 24 05/06/2024 COMPR EHENS CHERELLE METAB OLIC PANEL sodium 137 mmol/ L 133-14 5 Not Available [facility] [address] [place], [address], 05/06/2024 18:29:47 05/06/20 24 05/06/2024 COMPR EHENS CHERELLE METAB OLIC PANEL potassium 3.6 mmol/ L 3.5-5. 5 Not Available [facility] [address] [place], [address], 05/06/2024 18:29:47 05/06/20 24 05/06/2024 COMPR EHENS CHERELLE METAB OLIC PANEL chloride 105 mmol/ L 96-110 Not Available [facility] [address] [place], [address], 05/06/2024 18:29:47 05/06/20 24 05/06/2024 COMPR EHENS CHERELLE METAB OLIC PANEL CO2 25 mmol/ L 21-32 Not Available [facility] [address] [place], [address], 05/06/2024 18:29:47 05/06/20 24 05/06/2024 COMPR EHENS CHERELLE METAB OLIC PANEL anion gap 7 3-11 Not Available [facility] [address] [place], [address], 05/06/2024 18:29:47 05/06/20 24 05/06/2024 COMPR EHENS CHERELLE METAB OLIC PANEL glucose 81 mg/dL 70-100 Not Available [facility] [address] [place], [address], 05/06/2024 18:29:47 11/04/05/06/2024 COMPR EHENS CHERELLE METAB OLIC PANEL BUN 13 mg/dL 5-25 Not Available [facility] [address] [place], [address], 05/06/2024 18:29:47 05/06/20 24 05/06/2024 COMPR EHENS CHERELLE METAB OLIC PANEL creatinine 0.80 mg/dL 0.50-1 .10 Not Available [facility] [address] [place], [address], 05/06/2024 18:29:47 05/06/20 24 05/06/2024 COMPR EHENS CHERELLE METAB OLIC PANEL eGFR 95 mL/mi n/1.7 3m2 >=60 Calcu latio n based on the Chron ic Kidne y Disea se Epide miolo gy Colla borat ion (CKD- EPI) equat ion refit witho ut adjus tment for race. Not Available [facility] [address] [place], [address], 05/06/2024 18:29:47 05/06/20 24 05/06/2024 COMPR EHENS CHERELLE METAB OLIC PANEL BUN/creatini ne ratio 16.3 Not Available [facility] [address] [place], [address], 05/06/2024 18:29:47 05/06/20 24 05/06/2024 COMPR EHENS CHERELLE METAB OLIC PANEL calcium 9.8 mg/dL 8.5-10 .5 Not Available [facility] [address] [place], [address], 05/06/2024 18:29:47 05/06/20 24 05/06/2024 COMPR EHENS CHERELLE METAB OLIC PANEL AST (SGOT) 25 unit/ L 10-42 Not Available [facility] [address] [place], [address], 05/06/2024 18:29:47 05/06/20 24 05/06/2024 COMPR EHENS CHERELLE METAB OLIC PANEL ALT (SGPT) 29 unit/ L 10-60 Not Available [facility] [address] [place], [address], 05/06/2024 18:29:47 05/06/20 24 05/06/2024 COMPR EHENS CHERELLE METAB OLIC PANEL alkaline phosphatase 51 unit/ L 42-121 Not Available [facility] [address] [place] [address], [address], 05/06/2024 18:29:47 05/06/20 24 05/06/2024 COMPR EHENS CHERELLE METAB OLIC PANEL total protein 7.9 g/dL 6.0-8. 0 Not Available [facility] [address] [place] [address], [address], 05/06/2024 18:29:47 05/06/20 24 05/06/2024 COMPR EHENS CHERELLE METAB OLIC PANEL albumin 4.2 g/dL 3.2-5. 0 Not Available [facility] [address] [place] [address], [address], 05/06/2024 18:29:47 05/06/20 24 05/06/2024 COMPR EHENS CHERELLE METAB OLIC PANEL total bilirubin 0.6 mg/dL 0.0-1. 4 Not Available [facility] [address] [place] [address], [address], 05/06/2024 18:29:47 05/06/20 24 05/06/2024 COMPR EHENS CHERELLE METAB OLIC PANEL note See Report [facility], [address] [place] [address], Cornelius arellano, [place] [address] LL[facility] LABDS ^^^LL PL Not Available [facility] [address] [place] [address], [address], 05/06/2024 18:29:47 05/06/20 24 05/06/2024 HEPAT ITIS B SURFA CE ANTIB DIEGO QUANT ITATI VE hepatitis B surface Ab Negati ve negati ve Not Available [facility] [address] [place] [address], [address], 05/06/2024 18:30:44 05/06/20 24 05/06/2024 HEPAT ITIS B SURFA CE ANTIB DIEGO QUANT ITATI VE hepatitis B surface Ab quantitative <3.1 mIU/m L Not Available [facility] [address] [place], [address], 05/06/2024 18:30:44 05/06/20 24 05/06/2024 HEPAT ITIS B SURFA CE ANTIB DIEGO QUANT ITATI VE note See Report [facility], [address] [facility], Cornelius sorensen d, [facility] [place] [address] LLCSB LABDS ^^^LL PL Not Available [facility] [address] [place] [address], [address], 05/06/2024 18:30:44 05/06/20 24 05/06/2024 HEPAT ITIS C ANTIB DIEGO hepatitis C antibody Negati ve negati ve Not Available [facility] [address] [place] [address], [address], 05/06/2024 18:31:36 05/06/20 24 05/06/2024 HEPAT ITIS C ANTIB DIEGO note See Report [facility], [address] [facility], [facility], [facility] [place] [address] LLCS[facility] LABDS ^^^LL PL Not Available [facility] [address] [place] [address], [address], 05/06/2024 18:31:36 05/06/20 24 05/06/2024 URINA LYSIS WITH REFLE X MICRO SCOPI C specific gravity urine 1.014 1.003- 1.030 Not Available [facility] [address] [place] [address], [address], 05/07/2024 02:14:03 05/06/20 24 05/06/2024 URINA LYSIS WITH REFLE X MICRO SCOPI C pH, urine 5.5 pH 5.0-8. 0 Not Available [facility] [address] [place], [address], 05/07/2024 02:14:03 05/06/20 24 05/06/2024 URINA LYSIS WITH REFLE X MICRO SCOPI C leukocytes, urine Large negati ve abnormal Not Available [facility] [address] [place], [address], 05/07/2024 02:14:03 05/06/20 24 05/06/2024 URINA LYSIS WITH REFLE X MICRO SCOPI C nitrite, urine Negati ve negati ve Not Available [facility] [address] [place], [address], 05/07/2024 02:14:03 05/06/20 24 05/06/2024 URINA LYSIS WITH REFLE X MICRO SCOPI C protein, urine Negati ve mg/dL <=trac e Not Available [facility] [address] [place], [address], 05/07/2024 02:14:03 05/06/2005/06/2024 URINA LYSIS WITH REFLE X MICRO SCOPI C glucose, urine Negati ve mg/dL negati ve Not Available [facility] [address] [place], [address], 05/07/2024 02:14:03 05/06/20 24 05/06/2024 URINA LYSIS WITH REFLE X MICRO SCOPI C ketones, urine Negati ve mg/dL negati ve Not Available [facility] [address] [place], [address], 05/07/2024 02:14:03 05/06/20 24 05/06/2024 URINA LYSIS WITH REFLE X MICRO SCOPI C urobilinogen , urine 0.2 mg/dL 0.2-1. 0 Not Available [facility] [address] [place], [address], 05/07/2024 02:14:03 05/06/20 24 05/06/2024 URINA LYSIS WITH REFLE X MICRO SCOPI C bilirubin, urine Negati ve negati ve Not Available [facility] [address] [place], [address], 05/07/2024 02:14:03 05/06/20 24 05/06/2024 URINA LYSIS WITH REFLE X MICRO SCOPI C blood, urine Negati ve negati ve Not Available [facility] [address] [facility], [place], [address], 05/07/2024 02:14:03 05/06/20 24 05/06/2024 URINA LYSIS WITH REFLE X MICRO SCOPI C RBC, urine 1.3 /hpf 0-4 Not Available [facility] [address] [place] [address], [address], 05/07/2024 02:14:03 05/06/20 24 05/06/2024 URINA LYSIS WITH REFLE X MICRO SCOPI C WBC, urine 30.8 /hpf 0-4 high Not Available [facility] [address] [place] [address], [address], 05/07/2024 02:14:03 05/06/20 24 05/06/2024 URINA LYSIS WITH REFLE X MICRO SCOPI C squamous epithelial, urine 93 /lpf 0-60 high Not Available [facility] [address] [place] [address], [address], 05/07/2024 02:14:03 05/06/20 24 05/06/2024 URINA LYSIS WITH REFLE X MICRO SCOPI C bacteria, urine Few /hpf negati ve abnormal Not Available [facility] [address] [place] [address], [address], 05/07/2024 02:14:03 05/06/20 24 05/06/2024 URINA LYSIS WITH REFLE X MICRO SCOPI C hyaline casts, urine 0.0 /lpf 0-3 Not Available [facility] [address] [place] [address], [id number], 05/07/2024 02:14:03 05/06/2005/06/2024 URINA LYSIS WITH REFLE X MICRO SCOPI C note See Report [facility], [address] [facility], [place] [address], [place] [id number] MHSPL AB^^^ LLPL Not Available [facility] [address] [place] [address], [id number], 05/07/2024 02:14:03 05/06/20 24 05/06/2024 HCG, SERUM , QUALI TATIV E HCG qual Negati ve negati ve Not Available [facility] [address] [place], [id number], 05/07/2024 02:14:41 05/06/20 24 05/06/2024 HCG, SERUM , QUALI TATIV E note See Report [facility], [address] [facility] [place] [id number] LLCSB LABDS ^^^LL PL Not Available [facility] [address] [place], [id number], 05/07/2024 02:14:41 05/06/20 24 05/06/2024 VAGIN ITIS PATHO GENS MOLEC ULAR STUDY .note See Note Origi nal Order ing Provi ingris: PERLA WOODARD ILANA [facility] - [address] [facility] [place] [address] Not Available [facility] [address] [place] [address], [address], 05/07/2024 14:02:24 05/06/20 24 05/06/2024 VAGIN ITIS PATHO GENS MOLEC ULAR STUDY trichomonas vaginalis Negati ve negati ve Not Available [facility] [address] [place] [address], [address], 05/07/2024 14:02:24 05/06/20 24 05/06/2024 VAGIN ITIS PATHO GENS MOLEC ULAR STUDY gardnerella vaginalis Positi ve negati ve abnormal Not Available [facility] [address] [place] [address], [address], 05/07/2024 14:02:24 05/06/20 24 05/06/2024 VAGIN ITIS PATHO GENS MOLEC ULAR STUDY thelma species Positi ve negati ve abnormal Not Available [facility] [address] [place] [address], [address], 05/07/2024 14:02:24 05/06/20 24 05/06/2024 CULTU RE URINE .note See Note Origi nal Order ing Provi ingris: PERLA WOODARD ILANA [facility] - [address] [facility], [place] gfiel d, [place] [address] Not Available [facility] [address] [place], [address], 05/07/2024 18:24:59 05/06/20 24 05/06/2024 CULTU RE URINE culture, urine Cultur e in progre ss Not Available [facility] [address] [place], [address], 05/07/2024 18:24:59 12/25/19 25 12/24/2024 COMPL ETE BLOOD COUNT WBC 11.7 K/mcL 4.8-10 .8 high Not Available [facility] [address] [place], [address], 12/24/2024 15:42:07 12/25/19 25 12/24/2024 COMPL ETE BLOOD COUNT RBC 3.60 M/mcL 3.80-4 .80 low Not Available [facility] [address] [place] [address], [address], 12/24/2024 15:42:07 12/25/19 25 12/24/2024 COMPL ETE BLOOD COUNT hemoglobin 12.1 g/dL 11.5-1 6.0 Not Available [facility] [address] [place], [address], 12/24/2024 15:42:07 12/25/19 25 12/24/2024 COMPL ETE BLOOD COUNT hematocrit 34.6 % 35.0-4 7.0 low Not Available [facility] [address] [place] [address], [address], 12/24/2024 15:42:07 12/25/19 25 12/24/2024 COMPL ETE BLOOD COUNT MCV 97.5 fL 79.0-9 8.0 Not Available [facility] [address] [place], [address], 12/24/2024 15:42:07 12/25/19 25 12/24/2024 COMPL ETE BLOOD COUNT MCH 34.1 pcg 27.0-3 2.0 high Not Available [facility] [address] [place] [address], [address], 12/24/2024 15:42:07 12/25/19 25 12/24/2024 COMPL ETE BLOOD COUNT MCHC 35.0 g/dL 32.0-3 7.0 Not Available [facility] [address] [place] [address], [address], 12/24/2024 15:42:07 12/25/19 25 12/24/2024 COMPL ETE BLOOD COUNT RDW 13.1 % 11.0-1 5.0 Not Available [facility] [address] [place] [address], [address], 12/24/2024 15:42:07 12/25/19 25 12/24/2024 COMPL ETE BLOOD COUNT platelets 170 K/mcL 130-40 0 Not Available [facility] [address] [place] [address], [address], 12/24/2024 15:42:07 12/25/19 25 12/24/2024 COMPL ETE BLOOD COUNT MPV 10.2 fL 7.0-11 .0 Not Available [facility] [address] [place] [address], [address], 12/24/2024 15:42:07 12/25/19 25 12/24/2024 COMPL ETE BLOOD COUNT NRBC 0.0 % <1.0 Not Available [facility] [address] [place] [address], [address], 12/24/2024 15:42:07 12/25/19 25 12/24/2024 COMPL ETE BLOOD COUNT NRBC absolute 0.00 K/mcL <0.10 Not Available [facility] [address] [place] [address], [address], 12/24/2024 15:42:07 12/25/19 25 12/24/2024 COMPL ETE BLOOD COUNT note See Report [facility], [address] [place] [address], Cornelius arellano, [place] [address] Not Available [facility] [address] [place] [address], [address], 12/24/2024 15:42:07 12/25/19 25 12/24/2024 COMPR EHENS CHERELLE METAB OLIC PANEL sodium 136 mmol/ L 133-14 5 Not Available [facility] [address] [place], [address], 12/24/2024 16:57:25 12/25/19 25 12/24/2024 COMPR EHENS CHERELLE METAB OLIC PANEL potassium 3.9 mmol/ L 3.5-5. 5 Not Available [facility] [address] [place], [address], 12/24/2024 16:57:25 12/25/19 25 12/24/2024 COMPR EHENS CHERELLE METAB OLIC PANEL chloride 107 mmol/ L 96-110 Not Available [facility] [address] [place] [address], [address], 12/24/2024 16:57:25 12/25/19 25 12/24/2024 COMPR EHENS CHERELLE METAB OLIC PANEL CO2 19 mmol/ L 21-32 low Not Available [facility] [address] [place], [address], 12/24/2024 16:57:25 12/25/19 25 12/24/2024 COMPR EHENS CHERELLE METAB OLIC PANEL anion gap 10 3-11 Not Available [facility] [address] [place], [address], 12/24/2024 16:57:25 12/25/19 25 12/24/2024 COMPR EHENS CHERELLE METAB OLIC PANEL glucose 90 mg/dL 70-100 Not Available [facility] [address] [place], [address], 12/24/2024 16:57:25 12/25/19 25 12/24/2024 COMPR EHENS CHERELLE METAB OLIC PANEL BUN 14 mg/dL 5-25 Not Available [facility] [address] [place] [address], [address], 12/24/2024 16:57:25 12/25/19 25 12/24/2024 COMPR EHENS CHERELLE METAB OLIC PANEL creatinine 0.46 mg/dL 0.50-1 .10 low Not Available [facility] [address] [place], [address], 12/24/2024 16:57:25 12/25/19 25 12/24/2024 COMPR EHENS CHERELLE METAB OLIC PANEL eGFR 123 mL/mi n/1.7 3m2 >=60 Calcu latio n based on the Chron ic Kidne y Disea se Epide miolo gy Colla borat ion (CKD- EPI) equat ion refit witho ut adjus tment for race. Not Available [facility] [address] [place], [address], 12/24/2024 16:57:25 12/25/19 25 12/24/2024 COMPR EHENS CHERELLE METAB OLIC PANEL BUN/creatini ne ratio 30.4 Not Available [facility] [address] [place], [address], 12/24/2024 16:57:25 12/25/19 25 12/24/2024 COMPR EHENS CHERELLE METAB OLIC PANEL calcium 9.1 mg/dL 8.5-10 .5 Not Available [facility] [address] [place], [address], 12/24/2024 16:57:25 12/25/19 25 12/24/2024 COMPR EHENS CHERELLE METAB OLIC PANEL AST (SGOT) 19 unit/ L 10-42 Not Available [facility] [address] [place], [address], 12/24/2024 16:57:25 12/25/19 25 12/24/2024 COMPR EHENS CHERELLE METAB OLIC PANEL ALT (SGPT) 24 unit/ L 10-60 Not Available [facility] [address] [place], [address], 12/24/2024 16:57:25 12/25/19 25 12/24/2024 COMPR EHENS CHERELLE METAB OLIC PANEL alkaline phosphatase 49 unit/ L 42-121 Not Available [facility] [address] [place], [address], 12/24/2024 16:57:25 12/25/19 25 12/24/2024 COMPR EHENS CHERELLE METAB OLIC PANEL total protein 6.5 g/dL 6.0-8. 0 Not Available [facility] [address] [place], [address], 12/24/2024 16:57:25 12/25/19 25 12/24/2024 COMPR EHENS CHERELLE METAB OLIC PANEL albumin 3.0 g/dL 3.2-5. 0 low Not Available [facility] [address] [place], [address], 12/24/2024 16:57:25 12/25/19 25 12/24/2024 COMPR EHENS CHERELLE METAB OLIC PANEL total bilirubin 0.3 mg/dL 0.0-1. 4 Not Available [facility] [address] [place] [address], [address], 12/24/2024 16:57:25 12/25/19 25 12/24/2024 COMPR EHENS CHERELLE METAB OLIC PANEL note See Report [facility], [address] [facility], Cornelius crandallsusan d, [facility] [place] [address] Not Available [facility] [address] [place] [address], [address], 12/24/2024 16:57:25 12/25/19 25 12/24/2024 THYRO ID STIMU LATIN G HORMO NE TSH 1.44 mciu/ mL 0.40-4 .00 Not Available [facility] [address] [place], [address], 12/24/2024 17:16:30 12/25/1912/24/2024 THYRO ID STIMU LATIN G HORMO NE note See Report [facility], [address] [facility], Cornelius sorensen d, [place] [facility] [place] [address] Not Available [facility] [address] [place] [address], [address], 12/24/2024 17:16:30 12/25/19 25 12/24/2024 TREPO NEMA PALLI DUM ANTIB DIEGO WITH REFLE X TO RPR AND PARTI LIZET AGGLU TINAT ION T. pallidum antibodies Negati ve negati ve Not Available [facility] [address] [place] [address], [address], 12/24/2024 17:26:32 12/25/19 25 12/24/2024 TREPO NEMA PALLI DUM ANTIB DIEGO WITH REFLE X TO RPR AND PARTI LIZET AGGLU TINAT ION note See Report [facility], [address] [facility], [place] gfiel d, [facility] [place] [address] Not Available [facility] [address] [place], [address], 12/24/2024 17:26:32 12/25/19 25 12/24/2024 HIV 1, 2 ANTIB DIEGO, P24 ANTIG EN WITH REFLE X TO DIFFE RENTI ATION HIV combo Ab/Ag Negati ve negati ve Not Available [facility] [address] [place], [address], 12/24/2024 17:55:34 12/25/19 25 12/24/2024 HIV 1, 2 ANTIB DIEGO, P24 ANTIG EN WITH REFLE X TO DIFFE RENTI ATION note See Report [facility], [address] [facility], [facility], [facility] [place] [address] Not Available [facility] [address] [place], [address], 12/24/2024 17:55:34 12/25/19 25 12/24/2024 CHLAM YDIA TRACH OMATI S AND NEISS ERIA GONOR RHOEA E MOLEC ULAR STUDY .note See Note Origi nal Order ing Provi ingris: PERLA WOODARD ILANA [facility] - [address] [facility], [facility], [facility] [place] [address] Not Available [facility] [address] [place] [address], [address], 12/25/2024 10:46:49 12/25/19 25 12/24/2024 CHLAM YDIA TRACH OMATI S AND NEISS ERIA GONOR RHOEA E MOLEC ULAR STUDY neisseria gonorrhoeae PCR Negati ve negati ve Not Available [facility] [address] [place], [address], 12/25/2024 10:46:49 12/25/19 25 12/24/2024 CHLAM YDIA TRACH OMATI S AND NEISS ERIA GONOR RHOEA E MOLEC ULAR STUDY chlamydia trachomatis PCR Negati ve negati ve Not Available [facility] [address] [place], [address], 12/25/2024 10:46:49 12/25/19 25 12/24/2024 VAGIN ITIS PATHO GENS MOLEC ULAR STUDY .note See Note Origi nal Order ing Provi ingris: PERLA Mckeon MARTKleber ILANA [facility] - [address] [facility], [place], [place] [address] Not Available [facility] [address] [place], [address], 12/25/2024 12:16:21 12/25/19 25 12/24/2024 VAGIN ITIS PATHO GENS MOLEC ULAR STUDY trichomonas vaginalis Negati ve negati ve Not Available [facility] [address] [place], [address], 12/25/2024 12:16:21 12/25/19 25 12/24/2024 VAGIN ITIS PATHO GENS MOLEC ULAR STUDY gardnerella vaginalis Negati ve negati ve Not Available [facility] [address] [place], [address], 12/25/2024 12:16:21 12/25/19 25 12/24/2024 VAGIN ITIS PATHO GENS MOLEC ULAR STUDY thelma species Negati ve negati ve Not Available [facility] [address] [place], [address], 12/25/2024 12:16:21 12/25/19 25 12/24/2024 HEPAT ITIS B VIRUS MOLEC ULAR STUDY QUANT ITATI VE hepatitis B virus DNA qualitative DETECT ED not detect ed abnormal Not Available [facility] [address] [place], [address], 2024 11:35:34 12/25/19 25 12/24/2024 HEPAT ITIS B VIRUS MOLEC ULAR STUDY QUANT ITATI VE hepatitis B virus DNA, quantitative 82 IU/mL <10 high Not Available [facility] [address] [place], [address], 2024 11:35:34 12/25/19 25 12/24/2024 HEPAT ITIS B VIRUS MOLEC ULAR STUDY QUANT ITATI VE log hepatitis B virus DNA 1.91 log_( 10)_I U/mL <1.00 high This proce dure utili zes a real- time polym erase chain react ion test from [facility]. The ampli ficat ion targe t is a conse rved regio n in the termi nal third of the hepat itis B surfa ce antig en gene. The lower limit of quant itati on is 10 IU/mL (1.00 Log IU/mL ) and the upppe r limit of quant itati on is 1 jonah on IU/mL (9.00 Log IU/mL ). The quali tativ e limit of detec tion is 10 IU/mL (1.00 Log IU/mL ). A Not detec evonne resul t does not rule out infec tion. Test perfo rmed at [facility] atory , [address], [place] [address] [phone] Mechelle ramos MD, PhD - Medic al Dire tor Not Available [facility] [address] [place], [address], 2024 11:35:34 12/25/19 25 12/24/2024 HEPAT ITIS B VIRUS MOLEC ULAR STUDY QUANT ITATI VE note See Report high [facility], [address] [facility], Cornelius arellano, [place] [address] Not Available [facility] [address] [place], [address], 2024 11:35:34 12/25/19 25 12/24/2024 SHIPLEY FIBRO TEST FOR LIVER DISEA SE shipley fibrosure See Below SHIPLEY Fibro Sure( R) Plus SEE REPOR T UNDER SEPAR ATE COVER . REPOR T WILL BE SENT TO THE ORDER [facility] VIA PRINT ER OR FAX. ADDIT IONAL COPIE S OF THE ORIGI NAL REPOR T MAY ALSO BE OBTAI MANOHAR BY [facility] T [facility] at [phone] Not Available [facility] [address] [place], [address], 01/01/2025 15:57:41 12/25/19 25 12/24/2024 SHIPLEY FIBRO TEST FOR LIVER DISEA SE note See Report [facility], [address] [facility], [place]elius crandalliel d, [place] [address] Not Available [facility] [address] [place], [address], 01/01/2025 15:57:41 12/25/19 25 12/24/2024 SHIPLEY FIBRO TEST FOR LIVER DISEA SE shipley fibrosure See Below SHIPLEY Fibro Sure( R) Plus SEE REPOR T UNDER SEPAR ATE COVER . REPOR T WILL BE SENT TO THE [facility] VIA PRINT ER OR FAX. ADDIT IONAL COPIE S OF THE ORIGI NAL REPOR T MAY ALSO BE OBTAI MANOHAR BY [facility] T SERVI [facility] at [phone] Not Available [facility] [address] [place], [address], 01/02/2025 08:54:00 12/25/19 25 12/24/2024 SHIPLEY FIBRO TEST FOR LIVER DISEA SE note See Report [facility], [address] [facility], [place] g[place] d, [place] [address] Not Available [facility] [address] [place], [address], 01/02/2025 08:54:00 06/03/20 24 05/31/2024 US, abdom en, limit ed See Note [facility] , a member of [facility] t Name: KRISTIN Fish Date of : 1980 Reason for Exam: B19.10 Exam Date: 2023 [id number] EST Report Status : Final Orderi ng Provid er: YAJAIRA WHITAKER PCP: MARION PIKE EXAMIN ATION: ABDOME N ULTRAS OUND, LIMITE D CLINIC AL INFORM ATION: Hepati tis B COMPAR HANNA: Portio ns of a previo us study 2022 TECHNI QUE: Ultras ound of the abdome n, limite d FINDIN GS: QUALIT Y: Bowel obscur es some of the anatom y. PANCRE : The pancre atic head neck and some of the body are visual ized withou t a defini te abnorm ality. The pancre atic tail is mostly obscur ed. ABDOMI NAL AORTA/ IVC: Portio ns of the IVC are visual ized withou t a defini te abnorm ality. No abdomi nal aortic aneury sm demons trated . LIVER: The right lobe of the liver measur es 11.6 cm. The liver contou r appear s smooth . The backgr ound hepati c echote xture appear s homoge neous. The portal tracts are visual ized. Sound is able to penetr ate throug h the liver to demons trate the diaphr agm. No suspic ious focal liver lesion BILIAR Y: The gallbl adder is fluid- filled . No cholel ithias is, gallbl adder wall thicke elder, perich olecys tic fluid or biliar y dilati on. COMMON BILE DUCT: The common duct measur es 0.2 cm which is within normal limits . GALLBL ADDER TENDER NESS: There is no report ed tender ness to transd ucer pressu re over the gallbl adder. KIDNEY S: The right kidney measur es at least 8.[address] length . No dilati on of the intrar enal collec ting system on the right. No suspic ious right renal mass or shadow ing right renal calcul us FLUID: No intrap eriton eal fluid demons trated in the upper abdome n IMPRES MARCOS: The liver contou r is smooth . No suspic ious focal liver lesion . No ascite s ------ -- FINAL REPORT ------ -- Dictat ed By: Mark Ware Dictat ed Date: 2023 08:41 ET Assign ed Physic donita: Mark Ware Review ed and Electr onical ly Signed By: Rodrigo lópez Mark Valadez Signed Date: 2023 08:48 ET Workst ation ID: [id number] Transc ribed By: Self Edit Transc ribed Date: 2023 08:41 ET cmartorell [facility] (Imaging) [ 194 ] [address], [place], [address], 06/03/2024 09:48:28 Result Notes None recorded. Problems Name Problem SNOMED Code Status Onset Date Resolution Date Notes Provider Name and Address Organization Details Recorded Time Type B viral hepatitis 88404505 Active 2022 Whitley Kowalski MD [address] [place] [address] [place], [id number] , HIREN KOWALSKI MD [facility] 3 11:02:48 Genital herpes simplex 58155779 Active 2022 Whitley Kowalski MD [address] [place] [address] [place], [phone] , HIREN KOWALSKI MD [facility] 3 13:15:07 Herpes simplex 81734996 Active 2018 Herpes simplex; snomeddesc ription: Herpes simplex; Report Immunity to Registry: Yes; Notes: HSV 1 and 2 pos serology; Not Available [facility] 4 06:58:54 Herpesvir us infection 37598962 Active 2018 Herpesvira l infection, unspecifie d; snomeddesc ription: Herpes simplex; Report Immunity to Registry: Yes; Notes: HSV 1 and 2 pos serology; Not Available [facility] 4 06:58:55 Viral hepatitis B without hepatic coma 804075856 Active 2018 Unspecifie d viral hepatitis B without hepatic coma; snomeddesc ription: Type B viral hepatitis; Report Immunity to Registry: Yes; Notes: HBV core pos; S Ag pos; s ab neg; e ab pos; e ag neg ; Not Available [facility] 4 06:58:[address]-assoc iated gastritis 45881823 Active 2022 Helicobact er-associa evonne gastritis; snomeddesc ription: Helicobact er-associa evonne gastritis; Report Immunity to Registry: Yes; Notes: H pylori. s/p flflagyl. omeprazole ; Chewable; tetracycli ne;post tx H pylori neg 08/2021; Not Available [facility] 4 06:58:55 Gastritis 1792701 Active 2022 Other gastritis without bleeding; snomeddesc ription: Helicobact er-associa evonne gastritis; Report Immunity to Registry: Yes; Notes: H pylori. s/p flflagyl. omeprazole ; Chewable; tetracycli ne;post tx H pylori neg 08/2021; Not Available [facility] 4 06:58:55 Problem Notes None recorded. Medical Equipment None Reported. Allergies No known drug allergies Medications Name Sig Start Date Stop Date Status Note LastModified by Organization Details LastModified Time tetracycl ine 500 mg capsule 1 tab po qid x 14 days; 1 tableta por estelaa marshall crowe al mary kay 09/20 completed Duration : 14; VACCINE_ IND: no; SU_FULL_ NAME: Whitley abebe; Not Available Not Available Not Available fluconazo le 100 mg tablet Take 1 tablet every day by oral route for 7 days. 2022 active Not Available Not Available Not Avai lable clarithro mycin 500 mg tablet 500 MG TABLET; Quantity : 28; Duration : 14; 0 refill(s ) 2019 active Duration : 14; VACCINE_ IND: no; Not Available Not Available Not Available metronida zole 0.75 % (37.5 mg/5 gram) vaginal gel Insert 1 applicat orful every day by vaginal route for 7 days, for BV. active Not Available Not Available No t Available Pyridium 100 mg tablet Take 1 tablet twice a day by oral route, for dysuria. 2022 active Not Available Not Available Not Avai lable metronida zole 500 mg tablet TAKE 1 TABLET BY MOUTH 2 TIMES DAILY FOR 7 DAYS. 2021 active Duration : 7; VACCINE_ IND: no; Not Available Not Available Not Available terazosin 1 mg capsule active Not Available Not Available Not Available omeprazol e 40 mg capsule,d elayed release 1 tab po qd; 1 tableta por antonina arnett los brannon 10/06 completed Duration : 30; VACCINE_ IND: no; SU_FULL_ NAME: Whitley abebe; Not Available Not Available Not Available Miconazol e-7 2 % vaginal cream Insert 1 applicat orful every day by vaginal route for 7 days, for thelma vulvovag initis. 2022 active Not Available Not Available Not Avai lable amoxicill in 875 mg tablet 875 MG TABLET; Quantity : 28; Duration : 14; 0 refill(s ) 2019 active Duration : 14; VACCINE_ IND: no; Not Available Not Available Not Available clotrimaz ole-betam ethasone 1 %-0.05 % topical cream active Not Available Not Available Not Available omeprazol e 20 mg capsule,d elayed release Take 1 capsule every day by oral route around the clock for 30 days. active Not Available Not Available No t Available Benadryl 25 mg capsule 2 TABLET ORAL AT BEDTIME 2018 active VACCINE_ IND: no; SU_FULL_ NAME: Whitley abebe; Not Available Not Available Not Available cholecalc iferol (vitamin D3) 50 mcg (2,000 unit) capsule active Not Available Not Available Not Available One Daily 27 mg iron-800 mcg tablet active Not Available Not Available Not Available Flucelvax Quad 60 mcg (15 mcg x 4)/0.5 mL IM suspensio n mdck cell derived quadriva lent Quantity : ; 0 refill(s ) 2018 active VACCINE_ IND: yes; VACCINE_ NAME: Influenz a, injectab le, MDCK, quadriva lent, preserva tive; SU_FULL_ NAME: Whitley abebe; VIS_DATE : 15:26:05 .0; Not Available Not Available Not Available Vitals Date Recorded Body height Body temperature Body mass index (BMI) Body weight Systolic And Diastolic Provider Name and Address Organization Details Last Updated DateTime 08/16/2023 152.4 cm 98.3 [degF] 29.7 kg/m2 31095.0 4 g 115/70 mm[Hg] Nell KOWALSKI MD [facility] 4 11:16:48 Date Recorded Body height Heart rate Body temperature Body mass index (BMI) Body weight Systolic And Diastolic Provider Name and Address Organization Details Last Updated DateTime 5 152.4 cm 80 /min 98.3 [degF] 31.1 kg/m2 87300.1 9 g 82/56 mm[Hg] Deyanira Juliusplacido KOWALSKI MD [facility] 5 13:33:08 Date Recorded Body weight Oxygen saturation Oxygen saturation in Arterial blood by Pulse oximetry Heart rate Body temperature Systolic And Diastolic Provider Name and Address Organization Details Last Updated DateTime 3 11730.8 9 g 98 % 98 % 68 /min 98.5 [degF] 100/80 mm[Hg] Ousmane KOWALSKI MD [facility] 3 13:26:34 Date Recorded Body height Heart rate Respiratory rate Body temperature Body mass index (BMI) Body weight Systolic And Diastolic Provider Name and Address Organization Details Last Updated DateTime 4 152.4 cm 97 /min 10 /min 98.3 [degF] 29.3 kg/m2 47951.8 6 g 110/75 mm[Hg] Nell KOWALSKI MD [facility] 4 14:00:58 Date Recorded Body temperature Provider Name a nd Address Organization Details Last Updated DateTime 06/19/2023 98.2 [degF] Nell KOWALSKI MD [facility] 06/19/2023 13:15:17 Social History Question Answer Notes LastModified by Organizat ion Details LastModified Time Tobacco Smoking Status Never Smoker HIREN Blackwood MD [facility] 05/03/2023 13:29:35 Are You Blind Or Do You Have Difficulty Seeing? No [email or web address] Information not available 05/03/2023 Are You Deaf Or Do You Have Serious Difficulty Hearing? No [email or web address] Information not available 05/03/2023 Which Of Your Hands Is Dominant? Right [email or web address] Information not available 05/03/2023 Do You Have Difficulty Walking Or Climbing Stairs? No Information not available 05/03/2023 Sex: Female Functional Status Question Answer Note LastModified by Organizat ion Details LastModified Time Do you or have you ever used any other forms of tobacco or nicotine? No [email or web address] Information not available 05/03/2023 Do you have transportation difficulties? No [email or web address] Information not available 05/03/2023 Are you able to walk? YESWOREST [email or web address] Information not available 05/03/2023 Do you have difficulty doing errands alone? No [email or web address] Information not available 05/03/2023 Are you able to care for yourself? Yes [email or web address] Information not available 05/03/2023 Do you have difficulty dressing or bathing? No [email or web address] Information not available 05/03/2023 Mental Status Question Answer Note LastModified by Organization D etails LastModified Time Do you have difficulty concentrating, remembering or making decisions? No [email or web address] Information no t available 05/03/2023 Family History Nothing Reported Notes:High Blood pressure fa ther and mother Diabetes, Response Property: Yes; , Heart disease (CAD), Response Property: Yes; , High cholesterol, Response Property: Yes; , Hepatic, Response Property: Yes; , Hypertension, Response Property: Yes; Medical History Condition Response Hepatitis Y Gynecological HistoryNo gynecological history recorded. Obstetrics History GPAL:G 0 P 0 0 0 0 Immunizations Vaccine Type Date Status Note Provider Nam e and Address Organization Details Recorded Time Influenza, MDCK, quadrivalent, preservative 9 completed Not Available [facility] 08/23/2023 06:54:38 Past Encounters Encounter ID Performer Location Encounter Start Date Encounter Closed Date Diagnosis/Indication Diagnosis SNOMED-CT Code Diagnosis ICD10 Code Diagnosis Note [id number] Whitley Kowalski MD Main Office 21 [place] [id number] 05/03/2023 13:06:58 05/03/2023 14:32:53 Type B viral hepatitis [id number] B19.10 HBV: fo. u/s done. no tx needed at moment. labs monitoring : HBV DNA and ALT levels vary during the course of infection; will monitor for progressio n of liver disease. u/s abd q6-12 months. HBV Vaccine recommende d to household contacts and sexual contacts.G ERD. omeprazole qd pen GERD. STI prevention reviewed. condom use reviewed. Plan of care Reviewed. Questions and Concerns addressed Dysuria [id number] R30.0 [id number] Whitley Kowalski MD Main Office [address] [place] [address] 06/19/2023 10:30:09 06/19/2023 12:49:23 Type B viral hepatitis [id number] B19.10 HBV: fo. u/s done 10/2022 unremarkab le. no tx needed at moment. labs monitoring : HBV DNA and ALT levels vary during the course of infection; will monitor for progressio n of liver disease. u/s abd q6-12 months. HDV ordered; fibrosure Dysuria [id number] R30.0 labs. pyridium bid for sx of dysuria.us e hydrocorti sone prn for vaginal itchaloe-v era-hydrat ion recommende dvaginal hydrationc ontinue Urology tx for urine retentiona wait cultures to determine if needs antibacter ial/antivi ral tx. Gastroesop hageal reflux disease [id number] K21.9 refilled Genital he rpes simplex [id number] A60.9 herpes 1 and 2 positive serology hxhas acyclovir antiviral cream to use bid x 5 days as neededno recent flareupsde clines PreP [id number] Whitley Kowalski MD Main Office [address] [place] [address] 08/16/2023 11:05:21 08/16/2023 11:48:41 Type B viral hepatitis [id number] B19.10 HBV: f0 no tx needed at moment. labs monitoring : HBV DNA and ALT levels vary during the course of infection; will monitor for progressio n of liver disease. u/s abd q6-12 months. HBV Vaccine recommende d to household contacts and sexual contacts.d eclines PreP. will call if interested . Truvada would suppress HBV, and prevenT HIV.STI prevention reviewed. condom use reviewed. Plan of care Reviewed. Questions and Concerns addressed Candidiasis of vagina 72 [id number] B37.31 s/p fluconazol e and antifungal creammay recurwatch blood sugar levels as it could contribute to recurrence diet and exercise reviewed.f /u PCP elevtaed blood sugar [id number] Whitley Kowalski MD Main Office [address] [place] [address] 05/06/2024 13:32:07 05/06/2024 14:24:08 Type B viral hepatitis [id number] B19.10 HBV: f0 no tx needed at moment.lab s monitoring : HBV DNA and ALT levels vary during the course of infection; will monitor for progressio n of liver disease.HB V Vaccine recommende d to household contacts and sexual contacts.u /s abd HCC screenPlan of care Reviewed. Questions and Concerns addressed Candidiasis of vagina 72 707051 B37.31 past use of fluconazol e and antifungal creamBD Affirm obtained/c ollected; u/s and u/cwatch blood sugar levels as it could contribute to recurrence she has miconazole cream which she will start qd applicator for 7 dayssuppre ssion tx w fluconazol e qw reviewed as an option; will call if recurrence diet and exercise reviewed.f /u PCP elevtaed blood sugar [id number] Whitley Kowalski MD Main Office [address] [place] [address] 12/24/2024 13:14:26 12/24/2024 14:14:00 Type B viral hepatitis [id number] B19.10 HBV: f0 no tx needed at moment based on guidlines; however, will do blood work to see if tx is needed in setting of . .will monitor for progressio n of liver disease.u/ s abd HCC screen which will be ordered on next appointmen t; she gets pelvic u/s tomorrow.P joseph of care Reviewed. Questions and Concerns addressed Candidiasis of vagina 72 [id number] B37.31 past use antifungal creamBD Affirm obtained/c ollected;t o call if she develops sx. Viral hepa titis complicating , childbirth and the puerperium [id number] O98.419 B19.10 Maternal serum HBV DNA levels correlate with the risk of transmissi on. Vertical transmissi on of hepatitis B occurs in 9 to 39 percent of infants of highly viremic mothers despite vaccinatio n. The risk of HBV transmissi on is rare when maternal HBV DNA is <10 5 to 10 6 IU/mL. will recommend TDF at approximat marylu 28 weeks if HBV DNA levels >200,000 internatio nal IU/mL or >10 6 copies/mL. when antiviral therapy should be given in addition to standard passive-ac tive immunizati on of the to further reduce the risk of mother-to- child transmissi on If pt choses to get treated or if she needs tx based on guidelines , , tenofovir disoproxil fumarate (TDF) will be recommende d; TDF safety has been studies for use in in several prospectiv e clinical trials Women who start antiviral therapy during for the sole purpose of preventing mother-to- child transmissi on may stop antiviral therapy immediatel y after delivery, or may continue treatment for 4 to 12 weeks after delivery, in part to reduce the risk of a flare . F/u Mid January when she will be about 25 weeks to determine next stesp in management , Infants who received hepatitis B immune globulin (HBIG) and the first dose of hepatitis B vaccine at can be breastfed; care to prevent bleeding from cracked nipples will be important. 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 Health Concerns Section Related Observation LastModified by Organization Detai ls LastModified Time None Recorded Concern Status LastModified by Organization Details LastModified Time None Recorded Advance Directives Directive None Recorded Payers Insurance Date Sequence Insurance Name Policy Number Policy Garcia Covered Member ID Garcia Member ID Guarantor Name 12/30/2024 1 [facility] (O) [id number] [id number] [facility] Notes Date Note Type Note Provider Name and Address Organization Details Recorded Time 05/03/2023 text/html f/u HBV.HBV: not tx.labs reviewed.no tx needed10/2022 u/a bad nlno jaundice.10/2022 HBV DNA PCR fC=007;F0ALt/AST wnlHBV core pos; S ag pos; S ab neg; e ab pos; e ag negno ascites. no leg swelling; no hx of ascites. no jaundice.HIV negHCV negGC/chlamydia neg. needs BD affirmwine once a week; one drink.declines PrePdysuria for x 7 days. improved. urine retention.being seen by Urology.no CVA tenderness. no back pain. no fever. no weight loss. no hematuriano vaginal dischargeworse when sexually active.Urology prescribed oral tx for urine retention, but sh eis not using. Whitley Kowalski MD [address] [place] [address], [phone], HIREN KOWALSKI MD [facility] 05/03/2023 14:30:48 06/19/2023 text/html In office visitf /u sx 2 weeks stinging in vaginal area/dysuriaitchines s vaginal.no vaginal discharge.feels dry.sexually active, and sx get worse after sexual activitynot progressive; just ongoinghas had similar sx beforeno HSV vesiclesno fever. no back pain.no hematuria.menstrual period last weekurine retention.being seen by Urology who prescribed meddoing kegel exercisesno CVA tenderness. no back pain. no fever. no weight loss.she says that monistat hydrocortisone and vagisil anti-itch creme helps.previous cultures and swabs negative on 05/2023 for BD affirm, GC/chlamydia and urine culturedeclines PreP; pt was unfaithful once, but she believes he has been sexuallt active only with her since then. f/u HBV.HBV: not tx.labs reviewed. no recent labs. will go this weekno tx needed so far.10/2022 u/s nlno jaundice.10/2022 HBV DNA PCR mH=253;F0ALt/AST wnlHBV core pos; S ag pos; S ab neg; e ab pos; e ag negno ascites. no leg swelling; no hx of ascites. no jaundice.HIV negHCV negGC/chlamydia neg.declines PreP GERD. needs tx. Whitley Kowalski MD [address] [place] [address], [phone], HIREN KOWALSKI MD [facility] 06/19/2023 13:41:06 08/16/2023 text/html f/u HBV.HBV: not on tx.prefers to avoid tx if possible.declines PrePaware of PreP availability.06/2023 labs reviewed. HBV VL=89; unable to genotype; 06/2023 fibrosis F0; NO HDV. ASt/ALT wnl; she is aware of elevated glucoase. sees PCP in [place].06/2023 thelma vaginosis tx w topical antifungal/fluconazo le. sx resolved. no recurrence.no n/v/d. no headaches.has gained some weight due to eating habitsno jaundice.10/2022 HBV DNA PCR xU=466;HBV core pos; S ag pos; S ab neg; e ab pos; e ag negno ascites. no leg swelling; no hx of ascites. no jaundice.HIV negGC/chlamydia neg.no dysuriano CVA tenderness. no back pain. no fever. no weight loss. no hematuriano vaginal dischargesheng has no HBV per her report, but needs testing; has not been tested due to insurance barriers Whitley Kowalski MD [address] [place] [address], [phone], [facility] WHITLEY KOWALSKI MD [facility] 08/16/2023 13:01:37 05/06/2024 text/html f/u HBV.HBV: not on tx.prefers to avoid tx if possible.no recent labs06/2023 labs reviewed. HBV VL=89; unable to genotype; 06/2023 fibrosis F0; NO HDV. ASt/ALT wnl; she is aware of elevated glucoase. sees PCP in [place].no jaundice.10/2022 HBV DNA PCR tW=652;HBV core pos; S ag pos; S ab neg; e ab pos; e ag negno ascites. no leg swelling; no hx of ascites. no jaundice.HIV negsheng has no HBV per her report, but needs testing; has not been tested due to insurance barriers came in due to vaginal itchiness for about a week which as not gotten better.T was removed in December, and she has noticed increased frequency of infections; after removal.denies .06/2023, but she would like to get has been tx in the past w thelma vaginosis tx w topical antifungal/fluconazo le. sx resolved.no n/v/d. no headaches.no dysuriano CVA tenderness. no back pain. no fever. no weight loss. no hematuria Whitley Kowalski MD [address] [place] [address], [phone], [place] HIREN KOWALSKI MD [facility] 05/06/2024 23:55:11 12/24/2024 text/html f/u HBV.HBV: not on tx as per guidelines and pt preference.no leg swelling; no hx of ascites. no jaundice.no Hx HIVShe has been with same male partner for 14 years.no n/v/d. no headaches. no abd pain17 weeks . baby girl. gestational diabetes; followed by [facility]. ASA prescribed. had 2 kids: previous delivery at 32 weeks and 37 weeks; developed gestational diabetesno recent labs. pt remarks that she was recently treated by [facility] RECE[facility] for vaginal thelma; currently no sx.05/2024 AST/ALT ;eGFR=95; plt nl; HBV VL not done at lab;06/2023 labs reviewed. HBV VL=89; unable to genotype; 06/2023 fibrosis F0; NO HDV. ASt/ALT wnl; sno jaundice.10/2022 HBV DNA PCR pP=492;HBV core pos; S ag pos; S ab neg; e ab pos; e ag neg Whitley Kowalski MD [address] [place] [address], [phone], HIREN KOWALSKI MD [facility] 12/24/2024 22:35:29 OBGyn Episode No OBEpisode recorded.
== END 2025-01-09 11:50 | disposition home or self-care (01) ==
LOC: HO.HMCH 11:13
PROVIDERS: PCP Internal Medicine; Visit Provider Internal Medicine
DX: Z00.00 Encounter for general adult medical examination without abnormal findings (principal); F32.0 Major depressive disorder, single episode, mild

== ENCOUNTER → 2025-01-09 11:12 | Outpatient (BNVA) | payer OTHER, SELFPAY | PROVIDERS: PCP Internal Medicine; Visit Provider Internal Medicine | DX: Z00.00 Encounter for general adult medical examination without abnormal findings (principal); F32.0 Major depressive disorder, single episode, mild | CPT/HCPCS: 96127; 99396 ==